=== PATIENT | male | born 1975 | race Caucasian/White ===

== ENCOUNTER 2022-07-14 23:50 | Inpatient (IN) | payer OTHER, SELFPAY ==
--- NOTE | ~2022-07-14 | XR_ITS ---
EXAMINATION: XR small bowel follow through DATE: 07/19/2022 14:42 INDICATION: Abnormal CT scan with terminal ileitis TECHNIQUE: [employer] radiograph(s) of the abdomen was/were obtained. Oral contrast was administered, and sequential radiographs of the abdomen were obtained until oral contrast was noted to be in the proxi mal colon. Spot fluoroscopic images of the small bowel were obtained. Fluoroscopy exposure time was 2 .1 minutes. A total of 200 fluoroscopic images and 3 overhead radiographs were obtained. COMPARISON: CT dated 07/15/2022 FINDINGS: [employer] image demonstrates a cluster of small calcifications corresponding to multiple tiny stones like ly clustered in the calyceal diverticulum with the right kidney. Combined instrumented L4-S1 anterior and posterior spinal fusion with interbody bone graft cages with screw fixations and bilateral verti teodoro michael and pedicle screw fixations. There are additional surgical clips projecting over the midline of the more caudal pelvis. Bowel gas pattern is unremarkable. Transit time from the stomach to proximal colon was approximately 20 minutes. 5 cm proximal to the il eocecal valve is a short segment of at the distal ileum which appears relatively narrowed on many of the images but which does transiently dilated to a similar diameter as the more proximal and distal i leum. There are a few small linear extension of contrast oriented orthogonal to the axis of the lumen of the labrum at this location which are suspicious for small erosions. There appear to be a couple small diverticula along the more proximal ileum in the right lower quadrant. There is otherwise tyler l caliber and mucosal fold pattern throughout the more proximal small bowel. No tethering or abnorma l mass effect observed upon the small bowel with real-time fluoroscopy. IMPRESSION: 1. Very short segment of relatively narrowed terminal ileum with suggestion of small erosions but wit hout a fixed stricture located 5 cm proximal to the ileocecal valve. This corresponds in location to the edematous segment of small bowel on the prior CT which remains concerning for Crohn's disease wit h differential including either infectious terminal ileitis. 2. Couple small diverticula along the more proximal distal ileum. Reviewed, dictated and finalized at location A. IMPRESSION: 1. Very short segment of relatively narrowed terminal ileum with suggestion of small erosions but without a fixed stricture located 5 cm proximal to the ileoc ecal valve. This corresponds in location to the edematous segment of small sharyn l on the prior CT which remains concerning for Crohn's disease with differentia l including either infectious terminal ileitis. 2. Couple small diverticula along the more proximal distal ileum.
--- NOTE | ~2022-07-14 | CT_ITS ---
EXAMINATION: CT abdomen pelvis w con INDICATION: Right lower quadrant pain, prior appendectomy TECHNIQUE: Computed tomographic images of the abdomen and pelvis were obtained after the administrati on of 100 cc of Omnipaque 350 intravenous contrast. The dose-length product (DLP) was 455.42 mGy-cm. Automated exposure control and iterative reconstruction technique were employed. COMPARISON: None available FINDINGS: The lung bases are clear. The heart size is normal. The liver, spleen, pancreas, gallbladde r, and adrenal glands are normal. The left kidney is unremarkable. There is a 1.3 cm nonobstructing s tone of the right kidney. No pathologically enlarged abdominal or pelvic lymph nodes are identified. There are no dilated loops of bowel. There is inflammatory change of the right lower quadrant. There is wall thickening of the terminal ileum. There appears to be an approximately 2.7 cm abscess adjacen t to the terminal ileum. Changes of anterior and posterior fusion procedure are noted from L4 through S1. IMPRESSION: 1. Terminal ileitis with small abscess adjacent to the terminal ileum. Surgical evaluation is recomme nded. Reviewed, dictated and finalized at location A. IMPRESSION: 1. Terminal ileitis with small abscess adjacent to the terminal ileum. Surgical evaluation is recommended.
[2022-07-14 23:54] VITALS: BP 156/103; PULSE 120; RESP 20; TEMP 36.9; O2SAT 100
[2022-07-15 00:13] LABS: Basophils Percent Auto 0.1 % (0.2-1.2); Eosinophils Percent Auto 0.3 % (0-4.4); Hematocrit 43.6 % (42.0-52.0); Hemoglobin 14.8 g/dL (14.0-18.0); Immature Granulocyte Absolute 0.06 K/mm3 (0.00-0.031); Immature Granulocyte Percent A 0.6 % (0-0.5); Lymphocytes Absolute Auto 1.72 K/mm3 (0.9-3.2); Lymphocytes Percent Auto 16.8 % (18.3-44.2); Mean Corpuscular HGB Conc 33.9 g/dl (32-36); Mean Corpuscular Hemoglobin 31.1 pg (26-34); Mean Corpuscular Volume 91.6 fl (80-100); Mean Platelet Volume 9.4 fl (7.4-10.4); Monocytes Absolute Auto 0.8 K/mm3 (0.1-0.6); Monocytes Percent Auto 7.5 % (2.6-8.5); Neutrophils Absolute Auto 7.7 K/mm3 (1.3-6.7); Neutrophils Percent Auto 74.7 % (45.5-73.1); Platelet Count Result 218 k/mm3 (150-375); Red Blood Count 4.76 M/mm3 (4.6-6.20); Red Cell Distribution Width 12.2 % (11.5-14.5); White Blood Count 10.2 K/mm3 (4.5-10.0)
--- NOTE | 2022-07-15 00:21 | ED.ABDPAIN ---
HPI - Abdominal Pain General Chief Complaint: Abdominal Pain <NESSA Irvin Last Filed: 07/15/22 02:48> Stated Complaint: abdominal pain <NESSA Irvin Last Filed: 07/15/22 02:48> Time Seen by Provider: 07/15/22 00:06 <NESSA Irvin Last Filed: 07/15/22 02:48> Source: patient <NESSA Irvin Last Filed: 07/15/22 02:48> Mode of arrival: ambulatory <NESSA Irvin Last Filed: 07/15/22 02:48> Limitations: no limitations <NESSA Irvin Last Filed: 07/15/22 02:48> History of Present Illness HPI narrative: This is a 47-year-old male who presents to the ED with chief complaint of generalized abdominal pain onset x2 days. Described as cramping. Patient states that he has had a couple episodes of vomiting and nausea. Denies hematemesis. Endorses episodes of loose stools today which seem to help the pain. States that he feels if he could pass gas it would resolve his pain. Endorses bloating. States he is concerned for an obstruction as he has not been able to pass gas for the past 12 hours. Endorses Tmax of 101 ?F today. Endorses anxiety. Denies chest pain, shortness of breath, urinary symptoms. Reports surgical history of appendectomy, anterior lumbar spinal fusions. <NESSA Irvin Last Filed: 07/15/22 02:48> Related Data Home Medications: Home Medications Medication Instructions Recorded Confirmed levothyroxine 125 mcg tablet 125 mcg PO DAILY 07/15/22 07/15/22 naltrexone 50 mg tablet 5 mg PO DAILY 07/15/22 07/15/22 rosuvastatin 10 mg tablet 10 mg PO HS 07/15/22 07/15/22 zolpidem 10 mg tablet 10 mg PO HS PRN Sleep 07/15/22 07/15/22 <NESSA Irvin Last Filed: 07/15/22 02:48> Allergies/Adverse Reactions: Allergies Allergy/AdvReac Type Severity Reaction Status Date / Time Cephalosporins Allergy Hives Verified 07/14/22 23:54 <Kenroy Heredia PA-C - Last Filed: 07/15/22 02:48> Review of Systems Review of Systems: CONSTITUTIONAL: See HPI EYES: Denies visual changes, redness, or discharge. ENT: Denies rhinorrhea, congestion, sore throat, or otalgia. CARDIOVASCULAR: Denies chest pain, palpitations, or edema. RESPIRATORY: Denies cough or dyspnea. GASTROINTESTINAL: Denies abdominal pain, nausea, vomiting, or diarrhea. GENITOURINARY: Denies dysuria or hematuria. SKIN: Denies rash or itching. MUSCULOSKELETAL: Denies back pain, joint pain, or myalgia. NEUROLOGIC: Denies headache, numbness, dizziness, or weakness. PSYCHIATRIC: See HPI <Kenroy Heredia PA-C - Last Filed: 07/15/22 02:48> PMFSH Family History Family History: Family History (Updated 07/15/22 @ 03:27 by Monet Green RN) Mother Asthma Father Cerebrovascular accident Sibling Cerebrovascular accident <Kenroy Heredia PA-C - Last Filed: 07/15/22 02:48> Social History Social History: Social History Smoking status: Former smoker Alcohol intake: never Substance use: never Lack of Transportation: No Lack of Food: Never True Current Housing: I Have Housing Concerned About Future Housing: No Difficulty Paying Gas/Electric Bills: No Difficulty Paying for Meds: No Currently Unemployed: No Education: Bachelor's Degree Difficulty w/ Childcare or Family Care: No Spiritual care concerns: No <Kenroy Heredia PA-C - Last Filed: 07/15/22 02:48> Exam Narrative: GENERAL: Well-appearing, well-nourished, and in no acute distress. HEAD: Normocephalic, atraumatic. EYES: PERRLA and EOMI. ENT: Nares clear, no rhinorrhea or epistaxis. Mucous membranes moist. Oropharynx without tonsillar hypertrophy exudate or other lesions. NECK: Supple. No adenopathy or masses. CHEST: No respiratory distress. Clear to auscultation. No wheezes rales or rhonchi HEART: Regular rate and rhythm. No murmur heard. Normal peripheral pulses. ABDOMEN: Mild tenderness to the right lower quadrant and suprapubic abdominal region. W
[2022-07-15] MEDS: FAMOTIDINE 20 MG/2 ML VIAL IV PUSH (00:26)
[2022-07-15] MEDS: HYDROmorphone HCL INJ (*CRX) 1 MG/ML SYR 0.5 MG IV PUSH ×5 (00:26→22:17)
[2022-07-15] MEDS: ONDANSETRON INJ 4 MG/2 ML VIAL IV PUSH ×2 (00:26→02:52)
[2022-07-15] MEDS: SODIUM CHLORIDE 0.9% IV 1,000 ML 999 ML IV CONT ×2 (00:36)
[2022-07-15 00:38] LABS: Alanine Aminotransferase 51 U/L (6-50); Albumin Level 5.1 g/dL (3.5-5.1); Alkaline Phosphatase 70 U/L (38-126); Anion Gap 9 mmol/L (8-16); Aspartate Amino Transferase 57 U/L (17-59); Bilirubin,Total 1.2 mg/dL (0.2-1.3); Blood Urea Nitrogen 10 mg/dL (9-20); Calcium 9.3 mg/dL (8.4-10.2); Carbon Dioxide 30 mmol/L (22-30); Chloride 100 mmol/L (98-107); Estimated CRCL calculation 96 ml/min; Estimated Glomerular Filt Rate > 60; Glucose 105 mg/dL (65-110); Lipase 165 U/L (23-300); Potassium 3.7 mmol/L (3.4-5.0); Sodium 139 mmol/L (137-145)
[2022-07-15 01:15] LABS: Appearance Urine Clear (Clear); Bacteria Urine None Seen /hpf; Bilirubin Urine 1+ (Negative); Blood Urine Negative (Negative); Color Urine Dark Yellow (Yellow); Glucose Urine UA Negative (Negative); Ketones Urine 2+ mg/dL (Negative); Leukocyte Esterase Ur Trace LEU/UL (Negative); Mucus Urine Present /lpf; Nitrate Urine Negative (Negative); Non Pathogenic Casts 0-2; Protein Urine Trace mg/dL (Negative); RBC Urine 0-2 /hpf (0-2); Specific Grav Ur 1.027 (1.001-1.035); Squamous Epithelial Cell Urine None seen /hpf (Few); WBC Urine 0-5 /hpf
[2022-07-15 01:24] LABS: Add Urine Microscopic? YES
[2022-07-15] MEDS: PIPERACILLN/TAZ 3.375GM/NS50ML 3.375 GM/50 ML BAG IVPB (02:32)
[2022-07-15 02:47] VITALS: BP 122/85; PULSE 97; RESP 20; O2SAT 100
[2022-07-15 02:54] VITALS: BP 122/85; PULSE 91; RESP 14; O2SAT 100
[2022-07-15] MEDS: SODIUM CHLORIDE 0.9% IV 1,000 ML 125 ML IV CONT ×2 (03:21→13:48)
[2022-07-15 03:23] VITALS: BP 141/88; PULSE 90; RESP 20; TEMP 36.4; O2SAT 100
--- NOTE | 2022-07-15 03:23 | ADMGEN ---
This patient, Federico Stafford, was admitted to Medical Room 340-01. Patient/family oriented to hospital policies and general routines including ID bracelet, bed and alarms, visiting hours, pain management, procedures, bathroom and other care routines, personal items, smoking policy, room service/diet, and visiting hours. Information on how to activate the Rapid Response Team has been discussed. Patient/Family are encouraged to report perceived risks to care and to ask questions if they do not understand what they are told or what they should do.
[2022-07-15 05:51] VITALS: BP 117/72; PULSE 96; RESP 16; O2SAT 100
--- NOTE | 2022-07-15 06:09 | PM.IMHP ---
H&P: HPI History of Present Illness Date/Time: 07/15/22 04:09 Chief Complaint: Abdominal pain Narrative: 39-year-old male with past medical history of irritable bowel disease, hypothyroidism and long COVID who presented to the ER from family member christopher due to abdominal pain. The patient reports that he is here from [place] visiting his mother. He reports that on the evening of the he had some developing abdominal tightness. Within a couple of hours the tightness turn into a cramping right lower quadrant abdominal pain that was more severe to palpation. It was associated with decreased appetite. The pain was 7/10 in intensity. He denies any nausea or vomiting. He reports that he has not been able to have a bowel movement since onset of the pain. He reports that he usually tends to have more loose stools. But he will occasionally have variable bowel movements and have episodes of constipation. He has been having these issues since before 2008 at which time he had a colonoscopy which he reports was normal. He checked his temperature with an infrared thermometer and got a temperature as high as 101? on the . He reports that he had a his abdomen feels as if it is going to explode. He has had a prior open appendectomy in 1999 and a anterior lumbar fusion. He reports that his pain is similar to when he has had prior episodes of discomfort with his usual bowel symptoms. They use reports that his usual bowel symptoms resolve after about 30 minutes. This time his symptoms have not resolved and he still cannot have a bowel movement. He reports unintentional weight loss of 20-25 lb since May or June. He reports no changes in his appetite until the last couple of days. He has not been having any mucousy or bloody stools. He denies any nausea or vomiting. The patient reports that he feels like his abdomen is bubbling and that he just really needs to pass gas but is unable to do so. He did try to eat 2 tbsp of mustard which briefly helped his symptoms before his pain rebounded. He reports symptoms of long COVID including neuropathic pain down his arms, overwhelming fatigue, and disequilibrium. He reports that his symptoms have improved since he was started on naltrexone by his neurologist and underwent sequential compression therapy last month. He has been having as long COVID symptoms for 13 months. He developed long COVID after his 2nd episode of COVID. Review of Systems Review of Systems: 12 systems were reviewed with pertinent positives and negatives per HPI. Except as documented in the HPI, all other systems were reviewed and are negative. [facility] Past Medical History Medical History (Updated 07/15/22 @ 07:02 by Jade Blandon DO) Hypothyroidism Insomnia Long COVID Surgical History Surgical History (Updated 07/15/22 @ 06:24 by Jade Blandon DO) History of appendectomy (~2000) S/P lumbar and lumbosacral fusion by anterior technique (01/2018) L4 through S1 fusion Family History Family History Mother Asthma Father Cerebrovascular accident Sibling Cerebrovascular accident Social History Social History (Updated 07/15/22 @ 06:26 by Jade Blandon DO) Smoking packs per day: 0.5 Smoking cigarettes per day: 10.0 Years smoked: 7 Smoking pack-years: 3.50 Smoking status: Former smoker Alcohol intake: current Alcohol use details: 1 drink per month Substance use: never Lack of Transportation: No Lack of Food: Never True Current Housing: I Have Housing Concerned About Future Housing: No Difficulty Paying Gas/Electric Bills: No Difficulty Paying for Meds: No Currently Unemployed: No Education: Bachelor's Degree Difficulty w/ Childcare or Family Care: No Additional living arrangements comments: He lives with his fiancee of 15 years. [place] They are in the area visiting family. He does not have any
[2022-07-15] MEDS: LEVOTHYROXINE SODIUM INJ 100 MCG/5 ML VIAL 62.5 MCG IV PUSH (06:51)
[2022-07-15] MEDS: metroNIDAZOLE 500 MG/ISO 100ML 500 MG/100 ML BAG 100 MG IVPB ×3 (08:08→18:09)
[2022-07-15] MEDS: levoFLOXacin 750 MG/D5W 150 ML 750 MG/150 ML BAG 100 MG IVPB (08:13)
--- NOTE | 2022-07-15 13:51 | WPDGICN ---
Assessment and Plan Assessment and plan (1) Right lower quadrant abdominal abscess: Code(s): K65.1 - Peritoneal abscess Status: Acute Assessment and Plan: Patient with CT scan imaging suggesting terminal ileitis as well as right lower quadrant abscess. This very suspicious for Crohn's disease. Agree with broad-spectrum antibiotic coverage. If patient becomes distended than NG tube decompression may be warranted. When patient is stabilized colonoscopy in small-bowel follow-through is suggested. If abscess fails to respond surgical therapy may be warranted. Appreciate Dr. Garrett and surgical service input. We will try patient on IV steroids but I have discussed this with the surgeon as this could aggravate infectious etiology and/or wound healing after surgery. (2) Ileitis: Code(s): K52.9 - Noninfective gastroenteritis and colitis, unspecified Status: Acute Assessment and Plan: Ileitis on imaging suggests terminal ileitis and Crohn's disease. This not yet been confirmed. Hopefully as patient improves colonoscopy and small-bowel follow-through can be obtained. Patient ultimately hopes to return to his home state of [place] for continue management after hospital stay. (3) Long COVID: Code(s): U09.9 - Post COVID-19 condition, unspecified Status: Acute GI Consult Note Consult date/time: 07/15/22 13:51 Reason for consult: Right lower quadrant pain, abscess. HPI: Federico Stafford is a 47 year old male I am asked to see because of right lower quadrant pain and abscess on CT scan imaging. Patient lives in [place]. Was visiting his mother locally when on Monday began to have rather significant abdominal bloating and discomfort. He ultimately developed diffuse abdominal pain predominantly in the right lower quadrant. This prompted patient to go to the emergency room. CT scan imaging suggested terminal ileitis and an abscess. Patient states on began to have a low-grade fever which prompted him to go to the emergency room. Patient had loose bowel movements yesterday morning and has had difficulty passing gas until today. His abdomen is less distended today. The patient's recent past medical history is significant that he is suffering from Long COVID. Patient states as a teenager he had erosive esophagitis by endoscopy. Additionally has had lumbar spine 3rd surgery several years ago. He did have a history of appendectomy in the past. Family history is significant his mother had colitis for which she recovered. Presumably an infection. Review of Systems Review of Systems: Review of systems noncontributory. [facility] Past Medical History Medical History (Updated 07/15/22 @ 07:02 by Jade Blandon DO) Hypothyroidism Insomnia Long COVID Surgical History Surgical History (Updated 07/15/22 @ 06:24 by Jade Blandon DO) History of appendectomy (~2000) S/P lumbar and lumbosacral fusion by anterior technique (01/2018) L4 through S1 fusion Family History Family History Mother Asthma Father Cerebrovascular accident Sibling Cerebrovascular accident Social History Social History (Updated 07/15/22 @ 06:26 by Jade Blandon DO) Smoking packs per day: 0.5 Smoking cigarettes per day: 10.0 Years smoked: 7 Smoking pack-years: 3.50 Smoking status: Former smoker Alcohol intake: current Alcohol use details: 1 drink per month Substance use: never Lack of Transportation: No Lack of Food: Never True Current Housing: I Have Housing Concerned About Future Housing: No Difficulty Paying Gas/Electric Bills: No Difficulty Paying for Meds: No Currently Unemployed: No Education: Bachelor's Degree Difficulty w/ Childcare or Family Care: No Additional living arrangements comments: He lives with his fiancee of 15 years. They [place]. They are in the area vis
[2022-07-15 14:00] VITALS: BP 136/80; PULSE 93; RESP 18; TEMP 36.6; O2SAT 100
--- NOTE | 2022-07-15 15:43 | PM.IMPN ---
Progress Note: A&P Assessment and Plan (1) Right lower quadrant abdominal abscess: Code(s): K65.1 - Peritoneal abscess Status: Acute Assessment and Plan: Right lower quadrant abscess with associated was likely ileitis. Source of ileitis is not specified of possible inflammatory bowel disease. General surgery and gastroenterology has been consulted. GI recommending colonoscopy in small-bowel follow-through once patient is stabilized. Surgery not recommending surgical intervention at this time. Patient is NPO except meds. Pain medications with Dilaudid 0.5 mg q.4 hours p.r.n. and p.r.n. Zofran have been ordered. Patient started on Levaquin and Flagyl. (2) Ileitis: Code(s): K52.9 - Noninfective gastroenteritis and colitis, unspecified Status: Acute Assessment and Plan: Imaging suggesting terminal ileitis and Crohn's disease. This will have to be confirmed with colonoscopy, biopsy as well bowel follow-through. (3) Long COVID: Code(s): U09.9 - Post COVID-19 condition, unspecified Status: Acute Assessment and Plan: Will resume the patient's home naltrexone. (4) Hypothyroidism: Qualifiers: Hypothyroidism type: acquired Qualified Code(s): E03.9 - Hypothyroidism, unspecified Code(s): E03.9 - Hypothyroidism, unspecified Status: Acute Assessment and Plan: Will switch p.o. levothyroxine to IV levothyroxine. Subjective Date/time seen: 07/15/22 15:43 Interval history: Patient continued to have abdominal pain. Although it is better than when he arrived. He denies nausea vomiting. He has not had bowel movement but has passed gas. Plan to continue IV antibiotic therapy. Patient will likely need repeat CT scan to assess the progression of his abscess. His main concern is when he can be discharged due to him visiting family and not being from [place]. Patient is originally from [place] and would like to be discharged so he can return home with his soon. Exam Narrative: GENERAL: Comfortable, no acute distress HENMT: moist mucous membranes EYES: EOM intact b/l NECK: no lymphadenopathy RESPIRATORY: clear to auscultation CARDIO: RRR GI: soft, Diffuse abdominal tenderness right lower quadrant worse than the rest of the abdomen, hypoactive bowel sounds SKIN: no rashes EXTREMITIES: no edema, redness or tenderness Objective Data Vital Signs Vital Signs: Vital Signs - 24 hr 07/14/22 23:54 07/15/22 02:47 07/15/22 02:54 Temperature 98.5 F Pulse Rate 120 H 97 91 Respiratory Rate 20 20 14 Blood Pressure 156/103 H 122/85 122/85 Pulse Oximetry 100 100 100 Oxygen Delivery Room Air 07/15/22 03:37 07/15/22 03:23 07/15/22 05:51 Temperature 97.5 F L Pulse Rate 90 96 Respiratory Rate 20 16 Blood Pressure 141/88 H 117/72 Pulse Oximetry 100 100 Oxygen Delivery Room Air 07/15/22 08:00 07/15/22 14:00 Temperature 97.9 F Pulse Rate 93 Respiratory Rate 18 Blood Pressure 136/80 Pulse Oximetry 100 Oxygen Delivery Room Air Intake/Output Intake/Output: Intake & Output 07/12/22 07/13/22 07/14/22 07/15/22 23:59 23:59 23:59 23:59 Intake Total 3150 Output Total 1750 Balance 1400 Meds/Results Medications: Active Medications Generic Name Dose Route Start Last Admin Trade Name Freq PRN Reason Stop Dose Admin Enoxaparin Sodium 40 mg 07/15/22 09:00 07/15/22 13:49 Enoxaparin 40 Mg/0.4 Ml Syringe SUB-Q Not Given DAILY GISSELLE Hydromorphone HCl 0.5 mg 07/15/22 02:31 07/15/22 13:45 Hydromorphone Hcl Inj (*Crx) 1 Mg/Ml Syr IV PUSH 0.5 mg Q4H PRN Administration Pain Rated 7-10 Sodium Chloride 1,000 mls @ 125 mls/hr 07/15/22 02:35 07/15/22 13:48 Normal Saline Iv IV CONT 125 mls/hr .Q8H GISSELLE Administration Levofloxacin/Dextrose 750 mg in 150 mls @ 100 mls/hr 07/15/22 09:00 07/15/22 08:13 Levaquin 750 Mg/D5w 150 Ml IVPB
[2022-07-15] MEDS: methylPREDNISolone SOD SUCC 125 MG VIAL 60 MG IV PUSH ×2 (17:16→21:02)
[2022-07-15] MEDS: ACETAMINOPHEN/ASPIRIN/CAFFEINE 250-250-65 MG TABLET 1 TABLET PO (17:17)
--- NOTE | 2022-07-15 18:06 | PHAR ---
Addendum entered by Babita Wilson [facility] 07/15/22 22:01: CALLED [facility], [address] [place] [address], [place], [place], TO VERIFY COMPOUNDED CAPSULES AND SPOKE WITH PHARMACIST YENNI. RX [id number] BLUE AND WHITE CAPSULES AND RX [id number] ARE RED AND WHITE CAPSULES. PATIENT TAKES 5MG OR 6 MG WHICH HE HAS DISCUSSED WITH HIS DOCTOR DEPENDING ON HIS SYMPTOMS. CURRENTLY TAKING 5MG. Original Note: UNABLE TO IDENTIFY PATIENTS HOME MEDS RX [id number] [facility] FOR LACEYDANIELLASHEREE DATE FILLED 05-03-22 UNABLE TO IDENTIFY MEDS THESE ARE COMPOUNDED CAPSULES BOTTLE LABEL DIRECTIONS ARE 3 CAPSULES EVERY DAY NALTREXONE IR 2MG AND RX [id number] [facility] FOR SHEREE LACEY DATE FILLED 05-31-22 UNABLE TO IDENTIFY MEDS THESE ARE COMPOUNDED CAPSULES BOTTLE LABEL DIRECTIONS ARE 2 CAPSULES EVERY DAY NALTREXONE 3MG
[2022-07-15 19:35] VITALS: BP 128/84; PULSE 96; RESP 20; TEMP 36.6; O2SAT 100
[2022-07-15] MEDS: ZOLPIDEM TARTRATE (*CRX) 5 MG TABLET 10 MG PO (22:19)
[2022-07-16] MEDS: metroNIDAZOLE 500 MG/ISO 100ML 500 MG/100 ML BAG 100 MG IVPB ×4 (01:25→18:46)
[2022-07-16] MEDS: SODIUM CHLORIDE 0.9% IV 1,000 ML 125 ML IV CONT ×3 (01:25→21:03)
[2022-07-16 05:16] VITALS: BP 115/77; PULSE 82; RESP 18; TEMP 36.6; O2SAT 99
[2022-07-16] MEDS: LEVOTHYROXINE SODIUM INJ 100 MCG/5 ML VIAL 62.5 MCG IV PUSH (06:10)
[2022-07-16] MEDS: methylPREDNISolone SOD SUCC 125 MG VIAL 60 MG IV PUSH ×3 (06:10→21:03)
[2022-07-16 06:59] LABS: Basophils Percent Auto 0.1 % (0.2-1.2); Hematocrit 40.7 % (42.0-52.0); Hemoglobin 13.6 g/dL (14.0-18.0); Immature Granulocyte Absolute 0.04 K/mm3 (0.00-0.031); Immature Granulocyte Percent A 0.4 % (0-0.5); Lymphocytes Absolute Auto 0.82 K/mm3 (0.9-3.2); Lymphocytes Percent Auto 8.7 % (18.3-44.2); Mean Corpuscular HGB Conc 33.4 g/dl (32-36); Mean Corpuscular Hemoglobin 30.8 pg (26-34); Mean Corpuscular Volume 92.1 fl (80-100); Mean Platelet Volume 9.8 fl (7.4-10.4); Monocytes Absolute Auto 0.2 K/mm3 (0.1-0.6); Monocytes Percent Auto 1.7 % (2.6-8.5); Neutrophils Absolute Auto 8.4 K/mm3 (1.3-6.7); Neutrophils Percent Auto 89.1 % (45.5-73.1); Platelet Count Result 204 k/mm3 (150-375); Red Blood Count 4.42 M/mm3 (4.6-6.20); Red Cell Distribution Width 12.1 % (11.5-14.5); White Blood Count 9.4 K/mm3 (4.5-10.0)
[2022-07-16 07:42] LABS: Anion Gap 9 mmol/L (8-16); Blood Urea Nitrogen 14 mg/dL (9-20); CRP 17.9 mg/dL (<1.0); Calcium 8.5 mg/dL (8.4-10.2); Carbon Dioxide 27 mmol/L (22-30); Chloride 106 mmol/L (98-107); Estimated CRCL calculation 134 ml/min; Estimated Glomerular Filt Rate > 60; Glucose 147 mg/dL (65-110); Potassium 4.4 mmol/L (3.4-5.0); Sodium 142 mmol/L (137-145)
[2022-07-16] MEDS: levoFLOXacin 750 MG/D5W 150 ML 750 MG/150 ML BAG 100 MG IVPB (08:07)
[2022-07-16] MEDS: ENOXAPARIN 40 MG/0.4 ML SYRINGE SUB-Q (08:13)
--- NOTE | 2022-07-16 09:36 | WPDGIPROGNO ---
Progress Note: A&P Assessment and Plan (1) Right lower quadrant abdominal abscess: Code(s): K65.1 - Peritoneal abscess Status: Acute Assessment and Plan: Patient with terminal ileitis associated right lower quadrant abscess and tenderness. This all appears most consistent with inflammatory bowel disease probably Crohn's disease. Patient now on broad-spectrum antibiotic coverage. IV steroids started yesterday. Patient now passing flatus. Plan to start liquid diet and advance as tolerated. Colonoscopy and subsequent small-bowel follow-through will be anticipated after we are certain inflammation has subsided. At some point follow-up CT scan to document status of the abscess. (If meds fail to cause resolution potential for percutaneous drainage or surgery remains.) (2) Ileitis: Code(s): K52.9 - Noninfective gastroenteritis and colitis, unspecified Status: Acute (3) Long COVID: Code(s): U09.9 - Post COVID-19 condition, unspecified Status: Acute Subjective Date/time seen: 07/16/22 09:36 Interval history: Patient feels much better today. Significant decline and pain in his right lower quadrant. Patient ambulating in room. Hungry and anxious to resume diet. He is passing flatus but no bowel movement since admission hospital. Review of Systems Review of Systems: Review of systems noncontributory. Exam Narrative: Physical exam reveals patient be alert. Afebrile and anicteric. HEENT exam reveals no icterus. Lungs are clear. Heart without murmur. Abdomen bowel sounds present soft mild fullness in the right lower quadrant. Much less tender than yesterday. MDs without clubbing cyanosis or edema. Objective Data Vital Signs Vital Signs: Vital Signs - 24 hr 07/15/22 14:00 07/15/22 19:35 07/16/22 05:16 Temperature 97.9 F 97.9 F 97.9 F Pulse Rate 93 96 82 Respiratory Rate 18 20 18 Blood Pressure 136/80 128/84 115/77 Pulse Oximetry 100 100 99 Intake/Output Intake/Output: Intake & Output 07/13/22 07/14/22 07/15/22 07/16/22 23:59 23:59 23:59 23:59 Intake Total 4500 100 Output Total 3165 850 Balance 1335 -750 Meds/Results Medications: Active Medications Generic Name Dose Route Start Last Admin Trade Name Freq PRN Reason Stop Dose Admin Acetaminophen/Aspirin/Caffeine 1 tablet 07/15/22 16:50 07/15/22 17:17 Acetaminophen/Aspirin/Caffeine 250-250-65 Mg Tablet PO 1 tablet Q6H PRN Administration Pain Rated 1-3 Enoxaparin Sodium 40 mg 07/15/22 09:00 07/16/22 08:13 Enoxaparin 40 Mg/0.4 Ml Syringe SUB-Q 40 mg DAILY GISSELLE Administration Hydromorphone HCl 0.5 mg 07/15/22 02:31 07/15/22 22:17 Hydromorphone Hcl Inj (*Crx) 1 Mg/Ml Syr IV PUSH 0.5 mg Q4H PRN Administration Pain Rated 7-10 Sodium Chloride 1,000 mls @ 125 mls/hr 07/15/22 02:35 07/16/22 01:25 Normal Saline Iv IV CONT 125 mls/hr .Q8H GISSELLE Administration Levofloxacin/Dextrose 750 mg in 150 mls @ 100 mls/hr 07/15/22 09:00 07/16/22 08:07 Levaquin 750 Mg/D5w 150 Ml IVPB 100 mls/hr Q24H GISSELLE Administration Metronidazole 500 mg in 100 mls @ 100 mls/hr 07/15/22 07:00 07/16/22 06:10 Flagyl 500 Mg/Iso Soln 100 Ml IVPB 100 mls/hr Q6H GISSELLE Administration Levothyroxine Sodium 62.5 mcg 07/15/22 06:30 07/16/22 06:10 Levothyroxine Sodium Inj 100 Mcg/5 Ml Vial IV PUSH 62.5 mcg DAILY@0630 GISSELLE Administration Methylprednisolone Sodium Succinate 60 mg 07/15/22 14:00 07/16/22 06:10 Methylprednisolone Sod Succ 125 Mg Vial IV PUSH 60 mg Q8HR GISSELLE Administration Home Med Naltrexone 1 each 07/15/22 09:00 07/16/22 08:15 2mg Tablet PO 08/14/22 08:59 1 each DAILY GISSELLE Administration Home Med Naltrexone 1 each 07/15/22 09:00 07/16/22 08:15 3mg Tablet PO 08/14/22 08:59 1 each DAILY GISSELLE Administration Ondansetron HCl 4 mg 07/15/22 02:31 07/15/22 02:52 Ondansetron Inj 4 Mg/2 Ml Vial IV PU
[2022-07-16 09:39] VITALS: O2SAT 98
--- NOTE | 2022-07-16 11:23 | WPDCN ---
Assessment and Plan Assessment and plan (1) Ileitis: Code(s): K52.9 - Noninfective gastroenteritis and colitis, unspecified Status: Acute Assessment and Plan: Exam and CT findings consistent with terminal ileitis. He has no history of Crohn's disease but when his presentation it certainly is high in the differential. Dr. Cherry from gastroenterology has seen him and has recommended that he get a bowel follow-through series and a colonoscopy. This will likely be done before he leaves the hospital. He continues on IV antibiotics and bowel rest. (2) Right lower quadrant abdominal abscess: Code(s): K65.1 - Peritoneal abscess Status: Acute Assessment and Plan: The abscess is small likely can be treated with IV antibiotics. No need for surgical drainage at this time. He does not have evidence of perforation or high-grade small-bowel obstruction needing any surgical management at this time. We will continue to follow. HPI Data of Consult Date/Time: 07/15/22 11:23 Requesting Physician: Jade Blandon DO Primary Care Provider: PHYSICIAN NOT ON STAFF Consult Narrative Reason for consult: Right lower quadrant abdominal pain Narrative: Federico Stafford is a 47 year old male who was admitted to the hospital with a 2 day history of progressively worsening right lower quadrant abdominal pain. He stated he has had some minor pain in this area for several weeks. He will have some diarrhea but then the pain would go away. He has no family history of inflammatory bowel disease and a personal history of inflammatory bowel disease. He had an elevated white blood cell count on admission and a CT scan abdomen pelvis showed inflammation of the terminal ileum with an approximately 2 to 3 cm abscess in the area. No free air perforation was noted. He had a colonoscopy about 10 years ago normal. He is in town visiting his mother is originally from the [facility]. He had an appendectomy about 20 years ago. Review of Systems Review of Systems: The remainder of the review of systems to include constitutional, HEENT, cardiovascular, respiratory, GI, , integumentary, musculoskeletal, endocrine, immunologic, hematologic, psychiatric, and neurologic are all negative except for which is mentioned above in the HPI. [facility] Past Medical History Medical History Hypothyroidism Insomnia Long COVID Surgical History Surgical History History of appendectomy (~1999) S/P lumbar and lumbosacral fusion by anterior technique (01/2018) L4 through S1 fusion Family History Family History Mother Asthma Father Cerebrovascular accident Sibling Cerebrovascular accident Social History Social History Smoking packs per day: 0.5 Smoking cigarettes per day: 10.0 Years smoked: 7 Smoking pack-years: 3.50 Smoking status: Former smoker Alcohol intake: current Alcohol use details: 1 drink per month Substance use: never Lack of Transportation: No Lack of Food: Never True Current Housing: I Have Housing Concerned About Future Housing: No Difficulty Paying Gas/Electric Bills: No Difficulty Paying for Meds: No Currently Unemployed: No Education: Bachelor's Degree Difficulty w/ Childcare or Family Care: No Additional living arrangements comments: He lives with his fiancee of 15 years. They [place]. They are in the area visiting family. He does not have any children. 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 Spiritual care concerns: No Meds Home Medications and Allergies Home Medications Medication Instructions Rec
--- NOTE | 2022-07-16 11:29 | PM.PNGS ---
Progress Note: A&P Assessment and Plan (1) Ileitis: Code(s): K52.9 - Noninfective gastroenteritis and colitis, unspecified Status: Acute Assessment and Plan: Gastroenterology evaluation is ongoing. Is expected the patient will have a small bowel series performed as well as colonoscopy during this hospitalization. Dr. Cherry is managing. (2) Right lower quadrant abdominal abscess: Code(s): K65.1 - Peritoneal abscess Status: Acute Assessment and Plan: White blood cell count is normalized. His pain is much better. Continue IV antibiotics. Small abscess should resolve with nonoperative management. No evidence of grade small bowel obstruction or perforation. Continue IV antibiotics. Okay to advance to liquids today as per Dr. Cherry. Will follow. Subjective Subjective Date/Time Seen: 07/16/22 11:29 Interval history: Patient is doing much better today. Has much less right lower quadrant pain. Is passing flatus today. No nausea today. He has been afebrile. Exam Const: General: comfortable and no acute distress Resp: Effort & Inspection: normal respiratory effort Auscultation: clear to auscultation bilaterally Cardio: Rate: regular rate Rhythm: regular rhythm GI: Other: Abdomen is much softer and nondistended. Only mild tenderness to palpation right lower quadrant today. No guarding is noted. No peritoneal signs are noted. Neuro: Speech: normal speech Sensory Exam: normal sensation Psych: Mental Status: mental status grossly normal Affect: normal affect Objective Data Vital Signs Vital Signs: Vital Signs - 24 hr 07/15/22 14:00 07/15/22 19:35 07/16/22 05:16 Temperature 36.6 C 36.6 C 36.6 C Pulse Rate 93 96 82 Respiratory Rate 18 20 18 Blood Pressure 136/80 128/84 115/77 Pulse Oximetry 100 100 99 Oxygen Delivery 07/16/22 09:39 07/16/22 08:00 Temperature Pulse Rate Respiratory Rate Blood Pressure Pulse Oximetry 98 Oxygen Delivery Room Air Room Air Intake/Output Intake/Output: Intake & Output 07/13/22 07/14/22 07/15/22 07/16/22 23:59 23:59 23:59 23:59 Intake Total 4500 1740 Output Total 3165 1000 Balance 1335 740 Meds/Results Medications: Active Medications Generic Name Dose Route Start Last Admin Trade Name Freq PRN Reason Stop Dose Admin Acetaminophen/Aspirin/Caffeine 1 tablet 07/15/22 16:50 07/15/22 17:17 Acetaminophen/Aspirin/Caffeine 250-250-65 Mg Tablet PO 1 tablet Q6H PRN Administration Pain Rated 1-3 Enoxaparin Sodium 40 mg 07/15/22 09:00 07/16/22 08:13 Enoxaparin 40 Mg/0.4 Ml Syringe SUB-Q 40 mg DAILY GISSELLE Administration Hydromorphone HCl 0.5 mg 07/15/22 02:31 07/15/22 22:17 Hydromorphone Hcl Inj (*Crx) 1 Mg/Ml Syr IV PUSH 0.5 mg Q4H PRN Administration Pain Rated 7-10 Sodium Chloride 1,000 mls @ 125 mls/hr 07/15/22 02:35 07/16/22 11:02 Normal Saline Iv IV CONT 125 mls/hr .Q8H GISSELLE Administration Levofloxacin/Dextrose 750 mg in 150 mls @ 100 mls/hr 07/15/22 09:00 07/16/22 08:07 Levaquin 750 Mg/D5w 150 Ml IVPB 100 mls/hr Q24H GISSELLE Administration Metronidazole 500 mg in 100 mls @ 100 mls/hr 07/15/22 07:00 07/16/22 06:10 Flagyl 500 Mg/Iso Soln 100 Ml IVPB 100 mls/hr Q6H GISSELLE Administration Levothyroxine Sodium 62.5 mcg 07/15/22 06:30 07/16/22 06:10 Levothyroxine Sodium Inj 100 Mcg/5 Ml Vial IV PUSH 62.5 mcg DAILY@0630 GISSELLE Administration Methylprednisolone Sodium Succinate 60 mg 07/15/22 14:00 07/16/22 06:10 Methylprednisolone Sod Succ 125 Mg Vial IV PUSH 60 mg Q8HR GISSELLE Administration Home Med Naltrexone 1 each 07/15/22 09:00 07/16/22 08:15 2mg Tablet PO 08/14/22 08:59 1 each DAILY GISSELLE Administration Home Med Naltrexone 1 each 07/15/22 09:00 07/16/22 08:15 3mg Tablet PO 08/14/22 08:59 1 each DAILY GISSELLE Administration Ondansetron HCl 4 mg 07/15/22 02:31 07/15/22 02:52 Ondansetron
--- NOTE | 2022-07-16 11:48 | PM.IMPN ---
Progress Note: A&P Assessment and Plan (1) Right lower quadrant abdominal abscess: Code(s): K65.1 - Peritoneal abscess Status: Acute Assessment and Plan: Right lower quadrant abscess with associated was likely ileitis. Source of ileitis is not specified of possible inflammatory bowel disease. General surgery and gastroenterology has been consulted. GI recommending colonoscopy in small-bowel follow-through once patient is stabilized. Surgery not recommending surgical intervention at this time. Advance diet as tolerated starting with clear liquids Analgesics as needed Patient started on Levaquin and Flagyl. (2) Ileitis: Code(s): K52.9 - Noninfective gastroenteritis and colitis, unspecified Status: Acute Assessment and Plan: Imaging suggesting terminal ileitis and Crohn's disease. This will have to be confirmed with colonoscopy, biopsy as well bowel follow-through. (3) Long COVID: Code(s): U09.9 - Post COVID-19 condition, unspecified Status: Acute Assessment and Plan: Will resume the patient's home naltrexone. (4) Hypothyroidism: Qualifiers: Hypothyroidism type: acquired Qualified Code(s): E03.9 - Hypothyroidism, unspecified Code(s): E03.9 - Hypothyroidism, unspecified Status: Acute Assessment and Plan: Can resume p.o. levothyroxine Subjective Date/time seen: 07/16/22 11:48 Interval history: Patient's pain is much improved today compared to yesterday. He still has some residual right lower quadrant tenderness but is managing well. he has not had any bowel movements but is passing flatus. patient denies nausea, vomiting, headache, body aches and chills. Exam Narrative: GENERAL: Comfortable, no acute distress HENMT: moist mucous membranes EYES: EOM intact b/l NECK: no lymphadenopathy RESPIRATORY: clear to auscultation CARDIO: RRR GI: soft, right lower quadrant tenderness to palpation, Bowel sounds x4 SKIN: no rashes EXTREMITIES: no edema, redness or tenderness Objective Data Vital Signs Vital Signs: Vital Signs - 24 hr 07/15/22 14:00 07/15/22 19:35 07/16/22 05:16 Temperature 97.9 F 97.9 F 97.9 F Pulse Rate 93 96 82 Respiratory Rate 18 20 18 Blood Pressure 136/80 128/84 115/77 Pulse Oximetry 100 100 99 Oxygen Delivery 07/16/22 09:39 07/16/22 08:00 Temperature Pulse Rate Respiratory Rate Blood Pressure Pulse Oximetry 98 Oxygen Delivery Room Air Room Air Intake/Output Intake/Output: Intake & Output 07/13/22 07/14/22 07/15/22 07/16/22 23:59 23:59 23:59 23:59 Intake Total 4500 1740 Output Total 3165 1000 Balance 1335 740 Meds/Results Medications: Active Medications Generic Name Dose Route Start Last Admin Trade Name Freq PRN Reason Stop Dose Admin Acetaminophen/Aspirin/Caffeine 1 tablet 07/15/22 16:50 07/15/22 17:17 Acetaminophen/Aspirin/Caffeine 250-250-65 Mg Tablet PO 1 tablet Q6H PRN Administration Pain Rated 1-3 Enoxaparin Sodium 40 mg 07/15/22 09:00 07/16/22 08:13 Enoxaparin 40 Mg/0.4 Ml Syringe SUB-Q 40 mg DAILY GISSELLE Administration Hydromorphone HCl 0.5 mg 07/15/22 02:31 07/15/22 22:17 Hydromorphone Hcl Inj (*Crx) 1 Mg/Ml Syr IV PUSH 0.5 mg Q4H PRN Administration Pain Rated 7-10 Sodium Chloride 1,000 mls @ 125 mls/hr 07/15/22 02:35 07/16/22 11:02 Normal Saline Iv IV CONT 125 mls/hr .Q8H GISSELLE Administration Levofloxacin/Dextrose 750 mg in 150 mls @ 100 mls/hr 07/15/22 09:00 07/16/22 08:07 Levaquin 750 Mg/D5w 150 Ml IVPB 100 mls/hr Q24H GISSELLE Administration Metronidazole 500 mg in 100 mls @ 100 mls/hr 07/15/22 07:00 07/16/22 06:10 Flagyl 500 Mg/Iso Soln 100 Ml IVPB 100 mls/hr Q6H GISSELLE Administration Levothyroxine Sodium 62.5 mcg 07/15/22 06:30 07/16/22 06:10 Levothyroxine Sodium Inj 100 Mcg/5 Ml Vial IV PUSH 62.5 mcg DAILY@0630 [facility] Ad
[2022-07-16 14:00] VITALS: BP 128/82; PULSE 84; RESP 16; TEMP 35.9; O2SAT 99
[2022-07-16 20:06] VITALS: BP 132/89; PULSE 96; RESP 20; TEMP 36.5; O2SAT 99
[2022-07-16] MEDS: ZOLPIDEM TARTRATE (*CRX) 5 MG TABLET 10 MG PO (21:03)
[2022-07-17] MEDS: metroNIDAZOLE 500 MG/ISO 100ML 500 MG/100 ML BAG 100 MG IVPB ×5 (00:22→23:05)
[2022-07-17 04:07] VITALS: BP 121/72; PULSE 89; RESP 16; TEMP 36.6; O2SAT 98
[2022-07-17] MEDS: LEVOTHYROXINE SODIUM 125 MCG TABLET PO (06:03)
[2022-07-17] MEDS: methylPREDNISolone SOD SUCC 125 MG VIAL 60 MG IV PUSH ×3 (06:03→20:46)
[2022-07-17 06:36] LABS: Alanine Aminotransferase 29 U/L (6-50); Albumin Level 3.9 g/dL (3.5-5.1); Alkaline Phosphatase 47 U/L (38-126); Anion Gap 7 mmol/L (8-16); Aspartate Amino Transferase 25 U/L (17-59); Bilirubin,Total 0.6 mg/dL (0.2-1.3); Blood Urea Nitrogen 14 mg/dL (9-20); Calcium 8.3 mg/dL (8.4-10.2); Carbon Dioxide 26 mmol/L (22-30); Chloride 108 mmol/L (98-107); Estimated CRCL calculation 134 ml/min; Estimated Glomerular Filt Rate > 60; Glucose 156 mg/dL (65-110); Potassium 4.1 mmol/L (3.4-5.0); Sodium 141 mmol/L (137-145)
[2022-07-17 06:48] LABS: Basophils Percent Auto 0.1 % (0.2-1.2); Hematocrit 37.2 % (42.0-52.0); Hemoglobin 12.3 g/dL (14.0-18.0); Immature Granulocyte Absolute 0.14 K/mm3 (0.00-0.031); Immature Granulocyte Percent A 0.9 % (0-0.5); Lymphocytes Absolute Auto 0.82 K/mm3 (0.9-3.2); Lymphocytes Percent Auto 5.3 % (18.3-44.2); Mean Corpuscular HGB Conc 33.1 g/dl (32-36); Mean Corpuscular Hemoglobin 30.3 pg (26-34); Mean Corpuscular Volume 91.6 fl (80-100); Mean Platelet Volume 10.1 fl (7.4-10.4); Monocytes Absolute Auto 0.5 K/mm3 (0.1-0.6); Monocytes Percent Auto 3.3 % (2.6-8.5); Neutrophils Percent Auto 90.4 % (45.5-73.1); Platelet Count Result 229 k/mm3 (150-375); Red Blood Count 4.06 M/mm3 (4.6-6.20); Red Cell Distribution Width 12.2 % (11.5-14.5); White Blood Count 15.5 K/mm3 (4.5-10.0)
--- NOTE | 2022-07-17 08:34 | WPDGIPROGNO ---
Progress Note: A&P Assessment and Plan (1) Right lower quadrant abdominal abscess: Code(s): K65.1 - Peritoneal abscess Status: Acute Assessment and Plan: Patient noted to have right lower quadrant abscess associated with terminal ileitis on imaging studies. This is most consistent with Crohn's disease. Plan to continue IV steroids. Broad-spectrum antibiotic coverage as well. Advance diet slowly. Currently on full liquid diet he may benefit from advancing somewhat. He may increase activity with ambulation. Colonoscopy anticipated prior to discharge from the hospital. Still too early for patient to take a prep. Hopefully this can be accomplished over the next several days. Small-bowel follow-through should be performed after the colonoscopy. Will continue to follow closely at present. (2) Ileitis: Code(s): K52.9 - Noninfective gastroenteritis and colitis, unspecified Status: Acute Assessment and Plan: Terminal ileitis evident on CT scan imaging is suggestive of Crohn's disease. Evaluation remains in progress. Continue empiric therapy for now. Leukocytosis is likely secondary to steroid therapy. Subjective Date/time seen: 07/17/22 08:34 Interval history: Patient alert comfortable this morning. Tolerating liquid diet. Continues to pass flatus and small amount of stool noted. Review of Systems Review of Systems: Review of systems noncontributory. Exam Narrative: Physical exam reveals patient be alert. He is afebrile and anicteric. HEENT exam unremarkable. Lungs are clear. Heart without murmur. Abdomen bowel sounds present soft. Very mild tenderness in the right lower quadrant. Abdomen much softer. No fullness or mass appreciated at this time. Extremities without clubbing cyanosis or edema. Objective Data Vital Signs Vital Signs: Vital Signs - 24 hr 07/16/22 09:39 07/16/22 14:00 07/16/22 20:06 Temperature 96.6 F L 97.7 F Pulse Rate 84 96 Respiratory Rate 16 20 Blood Pressure 128/82 132/89 Pulse Oximetry 98 99 99 Oxygen Delivery Room Air 07/17/22 04:07 Temperature 97.8 F Pulse Rate 89 Respiratory Rate 16 Blood Pressure 121/72 Pulse Oximetry 98 Oxygen Delivery Intake/Output Intake/Output: Intake & Output 07/14/22 07/15/22 07/16/22 07/17/22 23:59 23:59 23:59 23:59 Intake Total 4500 4840 450 Output Total 3165 3000 Balance 1335 1840 450 Meds/Results Medications: Active Medications Generic Name Dose Route Start Last Admin Trade Name Freq PRN Reason Stop Dose Admin Acetaminophen/Aspirin/Caffeine 1 tablet 07/15/22 16:50 07/15/22 17:17 Acetaminophen/Aspirin/Caffeine 250-250-65 Mg Tablet PO 1 tablet Q6H PRN Administration Pain Rated 1-3 Enoxaparin Sodium 40 mg 07/15/22 09:00 07/16/22 08:13 Enoxaparin 40 Mg/0.4 Ml Syringe SUB-Q 40 mg DAILY GISSELLE Administration Hydromorphone HCl 0.5 mg 07/15/22 02:31 07/15/22 22:17 Hydromorphone Hcl Inj (*Crx) 1 Mg/Ml Syr IV PUSH 0.5 mg Q4H PRN Administration Pain Rated 7-10 Sodium Chloride 1,000 mls @ 125 mls/hr 07/15/22 02:35 07/16/22 21:03 Normal Saline Iv IV CONT 125 mls/hr .Q8H GISSELLE Administration Levofloxacin/Dextrose 750 mg in 150 mls @ 100 mls/hr 07/15/22 09:00 07/16/22 08:07 Levaquin 750 Mg/D5w 150 Ml IVPB 100 mls/hr Q24H GISSELLE Administration Metronidazole 500 mg in 100 mls @ 100 mls/hr 07/15/22 07:00 07/17/22 06:05 Flagyl 500 Mg/Iso Soln 100 Ml IVPB 100 mls/hr Q6H GISSELLE Administration Levothyroxine Sodium 125 mcg 07/17/22 06:30 07/17/22 06:03 Levothyroxine Sodium 125 Mcg Tablet PO 125 mcg DAILY@0630 GISSELLE Administration Methylprednisolone Sodium Succinate 60 mg 07/15/22 14:00 07/17/22 06:03 Methylprednisolone Sod Succ 125 Mg Vial IV PUSH 60 mg Q8HR GISSELLE Administration Home Med Naltrexone 1 each 07/15/22 09:00 07/16/22 08:15 2mg Tablet PO 08/14/22 08:59 1 each DAILY GISSELLE
[2022-07-17] MEDS: SODIUM CHLORIDE 0.9% IV 1,000 ML 125 ML IV CONT (08:44)
[2022-07-17 08:45] VITALS: O2SAT 96
[2022-07-17] MEDS: levoFLOXacin 750 MG/D5W 150 ML 750 MG/150 ML BAG 100 MG IVPB (08:45)
[2022-07-17] MEDS: ENOXAPARIN 40 MG/0.4 ML SYRINGE SUB-Q (08:45)
--- NOTE | 2022-07-17 11:54 | PM.PNGS ---
Progress Note: A&P Assessment and Plan (1) Ileitis: Code(s): K52.9 - Noninfective gastroenteritis and colitis, unspecified Status: Acute Assessment and Plan: Right lower quadrant abdominal pain likely due to inflammatory process. Could be Crohn's disease. Continue IV antibiotics which should treat the small abscess. He does not have a high-grade small-bowel obstruction at this time. Dr. Cherry plans on a slow bowel prep and probably a colonoscopy and small-bowel series next couple days. Surgery will be available as needed. Subjective Subjective Date/Time Seen: 07/17/22 11:54 Interval history: Patient feels little better today. Right lower quadrant pain is decreasing. He was able to have a small bowel movement. He has passed flatus. No nausea vomiting and he has been afebrile. Dr. Cherry plans on performing colonoscopy before he leaves. Exam GI: Other: Abdomen is soft and minimally distended. Mild tenderness to palpation right lower quadrant without rebound. No masses are appreciated. Objective Data Vital Signs Vital Signs: Vital Signs - 24 hr 07/16/22 14:00 07/16/22 20:06 07/17/22 04:07 Temperature 35.9 C L 36.5 C 36.6 C Pulse Rate 84 96 89 Respiratory Rate 16 20 16 Blood Pressure 128/82 132/89 121/72 Pulse Oximetry 99 99 98 Intake/Output Intake/Output: Intake & Output 07/14/22 07/15/22 07/16/22 07/17/22 23:59 23:59 23:59 23:59 Intake Total 4500 4990 2260 Output Total 3165 3000 Balance 1335 1990 2260 Meds/Results Medications: Active Medications Generic Name Dose Route Start Last Admin Trade Name Freq PRN Reason Stop Dose Admin Acetaminophen/Aspirin/Caffeine 1 tablet 07/15/22 16:50 07/15/22 17:17 Acetaminophen/Aspirin/Caffeine 250-250-65 Mg Tablet PO 1 tablet Q6H PRN Administration Pain Rated 1-3 Enoxaparin Sodium 40 mg 07/15/22 09:00 07/17/22 08:45 Enoxaparin 40 Mg/0.4 Ml Syringe SUB-Q 40 mg DAILY GISSELLE Administration Hydromorphone HCl 0.5 mg 07/15/22 02:31 07/15/22 22:17 Hydromorphone Hcl Inj (*Crx) 1 Mg/Ml Syr IV PUSH 0.5 mg Q4H PRN Administration Pain Rated 7-10 Sodium Chloride 1,000 mls @ 125 mls/hr 07/15/22 02:35 07/17/22 08:44 Normal Saline Iv IV CONT 125 mls/hr .Q8H GISSELLE Administration Levofloxacin/Dextrose 750 mg in 150 mls @ 100 mls/hr 07/15/22 09:00 07/17/22 08:45 Levaquin 750 Mg/D5w 150 Ml IVPB 100 mls/hr Q24H GISSELLE Administration Metronidazole 500 mg in 100 mls @ 100 mls/hr 07/15/22 07:00 07/17/22 06:05 Flagyl 500 Mg/Iso Soln 100 Ml IVPB 100 mls/hr Q6H GISSELLE Administration Levothyroxine Sodium 125 mcg 07/17/22 06:30 07/17/22 06:03 Levothyroxine Sodium 125 Mcg Tablet PO 125 mcg DAILY@0630 GISSELLE Administration Methylprednisolone Sodium Succinate 60 mg 07/15/22 14:00 07/17/22 06:03 Methylprednisolone Sod Succ 125 Mg Vial IV PUSH 60 mg Q8HR GISSELLE Administration Home Med Naltrexone 1 each 07/15/22 09:00 07/17/22 08:46 2mg Tablet PO 08/14/22 08:59 1 each DAILY GISSELLE Administration Home Med Naltrexone 1 each 07/15/22 09:00 07/17/22 08:46 3mg Tablet PO 08/14/22 08:59 1 each DAILY GISSELLE Administration Ondansetron HCl 4 mg 07/15/22 02:31 07/15/22 02:52 Ondansetron Inj 4 Mg/2 Ml Vial IV PUSH 4 mg Q4H PRN Administration Nausea Zolpidem Tartrate 10 mg 07/15/22 06:23 07/16/22 21:03 Zolpidem Tartrate (*Crx) 5 Mg Tablet PO 10 mg HS PRN Administration Sleep Radiology Results: ITS Impressions Abdomen/Pelvis CT 07/15/22 07:00 IMPRESSION: 1. Terminal ileitis with small abscess adjacent to the terminal ileum. Surgical evaluation is recommended. Labs Labs: Laboratory Results - last 24 hr 07/17/22 05:47 WBC 15.5 H RBC 4.06 L Hgb 12.3 L Hct 37.2 L MCV 91.6 MCH 30.3 MCHC 33.1 RDW 12.2 Plt Count 229 MPV 10.1 Immature Gran % (Auto) 0.9 H Neut % (Auto) 90.4 H Lymph % (Auto) 5.
--- NOTE | 2022-07-17 13:36 | PM.IMPN ---
Progress Note: A&P Assessment and Plan (1) Right lower quadrant abdominal abscess: Code(s): K65.1 - Peritoneal abscess Status: Acute Assessment and Plan: Right lower quadrant abscess with associated was likely ileitis. Source of ileitis is not specified of possible inflammatory bowel disease. General surgery and gastroenterology has been consulted. GI recommending colonoscopy in small-bowel follow-through once patient is stabilized. Tentative plan to have colonoscopy on 07/19/2022 and small-bowel follow-through after. Surgery not recommending surgical intervention at this time. Advance diet as tolerated starting with clear liquids Analgesics as needed Patient on Levaquin and Flagyl. (2) Ileitis: Code(s): K52.9 - Noninfective gastroenteritis and colitis, unspecified Status: Acute Assessment and Plan: Imaging suggesting terminal ileitis and Crohn's disease. This will have to be confirmed with colonoscopy, biopsy as well bowel follow-through. GI initiating IV steroids (3) Long COVID: Code(s): U09.9 - Post COVID-19 condition, unspecified Status: Acute Assessment and Plan: Will resume the patient's home naltrexone. (4) Hypothyroidism: Qualifiers: Hypothyroidism type: acquired Qualified Code(s): E03.9 - Hypothyroidism, unspecified Code(s): E03.9 - Hypothyroidism, unspecified Status: Acute Assessment and Plan: Can resume p.o. levothyroxine Subjective Date/time seen: 07/17/22 13:36 Interval history: patient feeling better today. Tolerating diet well. Has no new complaints at this time. Review of Systems Review of Systems: All systems reviewed & are unremarkable except as noted in HPI and below Exam Narrative: GENERAL: Comfortable, no acute distress HENMT: moist mucous membranes EYES: EOM intact b/l NECK: no lymphadenopathy RESPIRATORY: clear to auscultation CARDIO: RRR GI: soft, right lower quadrant tenderness to palpation, Bowel sounds x4 SKIN: no rashes EXTREMITIES: no edema, redness or tenderness Objective Data Vital Signs Vital Signs: Vital Signs - 24 hr 07/16/22 14:00 07/16/22 20:06 07/17/22 04:07 Temperature 96.6 F L 97.7 F 97.8 F Pulse Rate 84 96 89 Respiratory Rate 16 20 16 Blood Pressure 128/82 132/89 121/72 Pulse Oximetry 99 99 98 Oxygen Delivery 07/17/22 08:45 Temperature Pulse Rate Respiratory Rate Blood Pressure Pulse Oximetry 96 Oxygen Delivery Room Air Intake/Output Intake/Output: Intake & Output 07/14/22 07/15/22 07/16/22 07/17/22 23:59 23:59 23:59 23:59 Intake Total 4500 4990 2800 Output Total 3165 3000 Balance 1335 1990 2800 Meds/Results Medications: Active Medications Generic Name Dose Route Start Last Admin Trade Name Freq PRN Reason Stop Dose Admin Acetaminophen/Aspirin/Caffeine 1 tablet 07/15/22 16:50 07/15/22 17:17 Acetaminophen/Aspirin/Caffeine 250-250-65 Mg Tablet PO 1 tablet Q6H PRN Administration Pain Rated 1-3 Enoxaparin Sodium 40 mg 07/15/22 09:00 07/17/22 08:45 Enoxaparin 40 Mg/0.4 Ml Syringe SUB-Q 40 mg DAILY GISSELLE Administration Hydromorphone HCl 0.5 mg 07/15/22 02:31 07/15/22 22:17 Hydromorphone Hcl Inj (*Crx) 1 Mg/Ml Syr IV PUSH 0.5 mg Q4H PRN Administration Pain Rated 7-10 Sodium Chloride 1,000 mls @ 125 mls/hr 07/15/22 02:35 07/17/22 08:44 Normal Saline Iv IV CONT 125 mls/hr .Q8H GISSELLE Administration Levofloxacin/Dextrose 750 mg in 150 mls @ 100 mls/hr 07/15/22 09:00 07/17/22 08:45 Levaquin 750 Mg/D5w 150 Ml IVPB 100 mls/hr Q24H GISSELLE Administration Metronidazole 500 mg in 100 mls @ 100 mls/hr 07/15/22 07:00 07/17/22 06:05 Flagyl 500 Mg/Iso Soln 100 Ml IVPB 100 mls/hr Q6H GISSELLE Administration Levothyroxine Sodium 125 mcg 07/17/22 06:30 07/17/22 06:03 Levothyroxine Sodium 125 Mcg Tablet PO 125 mcg DAILY@0630
[2022-07-17 13:59] VITALS: BP 130/80; PULSE 78; RESP 17; TEMP 36.5; O2SAT 98
[2022-07-17 19:30] VITALS: BP 129/86; PULSE 87; RESP 20; TEMP 36.9; O2SAT 99
[2022-07-17] MEDS: ROSUVASTATIN 10 MG TABLET PO (20:46)
[2022-07-17] MEDS: ZOLPIDEM TARTRATE (*CRX) 5 MG TABLET 10 MG PO (23:05)
[2022-07-18 03:49] VITALS: BP 140/86; PULSE 84; RESP 18; TEMP 36.7; O2SAT 100
[2022-07-18 05:51] LABS: Hematocrit 35.3 % (42.0-52.0); Hemoglobin 11.6 g/dL (14.0-18.0); Immature Granulocyte Absolute 0.07 K/mm3 (0.00-0.031); Immature Granulocyte Percent A 0.7 % (0-0.5); Lymphocytes Absolute Auto 0.83 K/mm3 (0.9-3.2); Lymphocytes Percent Auto 7.9 % (18.3-44.2); Mean Corpuscular HGB Conc 32.9 g/dl (32-36); Mean Corpuscular Hemoglobin 30.2 pg (26-34); Mean Corpuscular Volume 91.9 fl (80-100); Mean Platelet Volume 10.1 fl (7.4-10.4); Monocytes Absolute Auto 0.3 K/mm3 (0.1-0.6); Monocytes Percent Auto 2.8 % (2.6-8.5); Neutrophils Absolute Auto 9.3 K/mm3 (1.3-6.7); Neutrophils Percent Auto 88.6 % (45.5-73.1); Platelet Count Result 251 k/mm3 (150-375); Red Blood Count 3.84 M/mm3 (4.6-6.20); Red Cell Distribution Width 12.3 % (11.5-14.5); White Blood Count 10.5 K/mm3 (4.5-10.0)
[2022-07-18] MEDS: methylPREDNISolone SOD SUCC 125 MG VIAL 60 MG IV PUSH (06:02)
[2022-07-18] MEDS: LEVOTHYROXINE SODIUM 125 MCG TABLET PO (06:03)
[2022-07-18] MEDS: metroNIDAZOLE 500 MG/ISO 100ML 500 MG/100 ML BAG 100 MG IVPB (06:03)
[2022-07-18 06:25] LABS: Alanine Aminotransferase 25 U/L (6-50); Albumin Level 3.4 g/dL (3.5-5.1); Alkaline Phosphatase 42 U/L (38-126); Anion Gap 4 mmol/L (8-16); Aspartate Amino Transferase 22 U/L (17-59); Bilirubin,Total 0.4 mg/dL (0.2-1.3); Blood Urea Nitrogen 14 mg/dL (9-20); CRP 4.2 mg/dL (<1.0); Calcium 8.1 mg/dL (8.4-10.2); Carbon Dioxide 30 mmol/L (22-30); Chloride 106 mmol/L (98-107); Estimated CRCL calculation 134 ml/min; Estimated Glomerular Filt Rate > 60; Glucose 150 mg/dL (65-110); Potassium 3.9 mmol/L (3.4-5.0); Sodium 140 mmol/L (137-145)
--- NOTE | 2022-07-18 07:12 | WPDGIPROGNO ---
Progress Note: A&P Assessment and Plan (1) Right lower quadrant abdominal abscess: Code(s): K65.1 - Peritoneal abscess Status: Acute Assessment and Plan: Patient's right lower quadrant abdominal pain has subsided. Patient has begun to have good bowel movements. Plan for colonoscopy to assess for possible Crohn's disease tomorrow after preparation today. Dose of steroids will be decreased. Change to oral medications tomorrow as diet as tolerated. (2) Ileitis: Code(s): K52.9 - Noninfective gastroenteritis and colitis, unspecified Status: Acute Assessment and Plan: Terminal ileitis suggested on imaging studies raises concern over Crohn's disease which appears to be most likely diagnosis. This will be evaluated initially with attempts at colonoscopy tomorrow ,. small-bowel follow-through can be performed sometime after colonoscopy is performed. Subjective Date/time seen: 07/18/22 07:12 Interval history: Patient alert this morning. Comfortable at rest. Has begun to pass bowel movements. He states that his diarrheal type stool. He denies any difficulty with oral intake. He states right lower quadrant pain has subsided with minimal discomfort remaining. Review of Systems Review of Systems: Review of systems noncontributory. Exam Narrative: Physical exam reveals patient to be alert. Vital signs stable. HEENT exam is unremarkable. Patient is anicteric. Lungs are clear to auscultation and percussion. Heart is without murmur or extra sounds. Abdomen bowel sounds are present soft nontender with no organomegaly. Fullness in right lower quadrant is improved dramatically. Objective Data Vital Signs Vital Signs: Vital Signs - 24 hr 07/17/22 08:45 07/17/22 13:59 07/17/22 19:30 Temperature 97.7 F 98.4 F Pulse Rate 78 87 Respiratory Rate 17 20 Blood Pressure 130/80 129/86 Pulse Oximetry 96 98 99 Oxygen Delivery Room Air 07/17/22 20:00 07/18/22 03:49 Temperature 98.1 F Pulse Rate 84 Respiratory Rate 18 Blood Pressure 140/86 Pulse Oximetry 100 Oxygen Delivery Room Air Intake/Output Intake/Output: Intake & Output 07/15/22 07/16/22 07/17/22 07/18/22 23:59 23:59 23:59 23:59 Intake Total 4500 4990 4200 500 Output Total 3165 3000 1600 250 Balance 1335 1990 2600 250 Meds/Results Medications: Active Medications Generic Name Dose Route Start Last Admin Trade Name Freq PRN Reason Stop Dose Admin Acetaminophen/Aspirin/Caffeine 1 tablet 07/15/22 16:50 07/15/22 17:17 Acetaminophen/Aspirin/Caffeine 250-250-65 Mg Tablet PO 1 tablet Q6H PRN Administration Pain Rated 1-3 Enoxaparin Sodium 40 mg 07/15/22 09:00 07/17/22 08:45 Enoxaparin 40 Mg/0.4 Ml Syringe SUB-Q 40 mg DAILY GISSELLE Administration Hydromorphone HCl 0.5 mg 07/15/22 02:31 07/15/22 22:17 Hydromorphone Hcl Inj (*Crx) 1 Mg/Ml Syr IV PUSH 0.5 mg Q4H PRN Administration Pain Rated 7-10 Levofloxacin/Dextrose 750 mg in 150 mls @ 100 mls/hr 07/15/22 09:00 07/17/22 08:45 Levaquin 750 Mg/D5w 150 Ml IVPB 100 mls/hr Q24H GISSELLE Administration Metronidazole 500 mg in 100 mls @ 100 mls/hr 07/15/22 07:00 07/18/22 06:03 Flagyl 500 Mg/Iso Soln 100 Ml IVPB 100 mls/hr Q6H GISSELLE Administration Levothyroxine Sodium 125 mcg 07/17/22 06:30 07/18/22 06:03 Levothyroxine Sodium 125 Mcg Tablet PO 125 mcg DAILY@0630 GISSELLE Administration Methylprednisolone Sodium Succinate 60 mg 07/15/22 14:00 07/18/22 06:02 Methylprednisolone Sod Succ 125 Mg Vial IV PUSH 60 mg Q8HR GISSELLE Administration Home Med Naltrexone 1 each 07/15/22 09:00 07/17/22 08:46 2mg Tablet PO 08/14/22 08:59 1 each DAILY GISSELLE Administration Home Med Naltrexone 1 each 07/15/22 09:00 07/17/22 08:46 3mg Tablet PO 08/14/22 08:59 1 each DAILY GISSELLE Administration Ondansetron HCl 4 mg 07/15/22 02:31 07/15/22 02:52 Ondansetron Inj 4 Mg/2 Ml V
[2022-07-18 09:15] VITALS: PULSE 84; RESP 18; O2SAT 100
[2022-07-18] MEDS: levoFLOXacin 750 MG/D5W 150 ML 750 MG/150 ML BAG 100 MG IVPB (09:16)
[2022-07-18 09:37] VITALS: O2SAT 100
[2022-07-18] MEDS: PEG (High)/E-LYTE SOLN 4,000 ML BTL 4000 ML PO (11:55)
--- NOTE | 2022-07-18 12:15 | PM.IMPN ---
Progress Note: A&P Assessment and Plan (1) Right lower quadrant abdominal abscess: Code(s): K65.1 - Peritoneal abscess Status: Acute Assessment and Plan: Right lower quadrant abscess with associated was likely ileitis. Source of ileitis is not specified of possible inflammatory bowel disease. General surgery and gastroenterology has been consulted. GI recommending colonoscopy in small-bowel follow-through once patient is stabilized. Tentative plan to have colonoscopy on 07/19/2022 and small-bowel follow-through after. Surgery not recommending surgical intervention at this time. Advance diet as tolerated starting with clear liquids Analgesics as needed Patient on Levaquin and Flagyl, transitioned to PO (2) Ileitis: Code(s): K52.9 - Noninfective gastroenteritis and colitis, unspecified Status: Acute Assessment and Plan: Imaging suggesting terminal ileitis and Crohn's disease. This will have to be confirmed with colonoscopy, biopsy as well bowel follow-through. GI initiating IV steroids (3) Long COVID: Code(s): U09.9 - Post COVID-19 condition, unspecified Status: Acute Assessment and Plan: Will resume the patient's home naltrexone. (4) Hypothyroidism: Qualifiers: Hypothyroidism type: acquired Qualified Code(s): E03.9 - Hypothyroidism, unspecified Code(s): E03.9 - Hypothyroidism, unspecified Status: Acute Assessment and Plan: Can resume p.o. levothyroxine Subjective Date/time seen: 07/18/22 12:15 Interval history: Patient doing better today and states that his abdominal pain is even better today than yesterday. He is experiencing bloating after eating that is uncomfortable but not painful. Patient stated that GI is performing colonoscopy tomorrow and he is to begin prep today. He did have a bowel movement yesterday that was diarrhea but no blood present. Review of Systems Review of Systems: All systems reviewed & are unremarkable except as noted in HPI and below Exam Narrative: GENERAL: Comfortable, no acute distress HENMT: moist mucous membranes EYES: EOM intact b/l NECK: no lymphadenopathy RESPIRATORY: clear to auscultation CARDIO: RRR GI: soft, right lower quadrant tenderness to palpation, Bowel sounds x4 SKIN: no rashes EXTREMITIES: no edema, redness or tenderness Objective Data Vital Signs Vital Signs: Vital Signs - 24 hr 07/17/22 13:59 07/17/22 19:30 07/17/22 20:00 Temperature 97.7 F 98.4 F Pulse Rate 78 87 Respiratory Rate 17 20 Blood Pressure 130/80 129/86 Pulse Oximetry 98 99 Oxygen Delivery Room Air 07/18/22 03:49 07/18/22 09:37 Temperature 98.1 F Pulse Rate 84 Respiratory Rate 18 Blood Pressure 140/86 Pulse Oximetry 100 100 Oxygen Delivery Room Air Intake/Output Intake/Output: Intake & Output 07/15/22 07/16/22 07/17/22 07/18/22 23:59 23:59 23:59 23:59 Intake Total 4500 4990 4350 1380 Output Total 3165 3000 1600 250 Balance 1335 1990 2750 1130 Meds/Results Medications: Active Medications Generic Name Dose Route Start Last Admin Trade Name Freq PRN Reason Stop Dose Admin Acetaminophen/Aspirin/Caffeine 1 tablet 07/15/22 16:50 07/15/22 17:17 Acetaminophen/Aspirin/Caffeine 250-250-65 Mg Tablet PO 1 tablet Q6H PRN Administration Pain Rated 1-3 Enoxaparin Sodium 40 mg 07/15/22 09:00 07/17/22 08:45 Enoxaparin 40 Mg/0.4 Ml Syringe SUB-Q 40 mg DAILY GISSELLE Administration Hydromorphone HCl 0.5 mg 07/15/22 02:31 07/15/22 22:17 Hydromorphone Hcl Inj (*Crx) 1 Mg/Ml Syr IV PUSH 0.5 mg Q4H PRN Administration Pain Rated 7-10 Levofloxacin 750 mg 07/19/22 09:00 Levofloxacin 750 Mg Tablet PO DAILY [facility] Levothyroxine Sodium 125 mcg 07/17/22 06:30 07/18/22 06:03 Levothyroxine Sodium 125 Mcg Tablet PO 125 mcg DAILY@0630 GISSELLE Administration Methylprednisolone Sodium Succinate 4
[2022-07-18 14:00] VITALS: BP 133/91; PULSE 74; RESP 14; TEMP 36.7; O2SAT 100
[2022-07-18] MEDS: metroNIDAZOLE 250 MG TABLET 500 MG PO ×2 (14:09→20:52)
[2022-07-18] MEDS: methylPREDNISolone SOD SUCC 40 MG VIAL IV PUSH ×2 (14:25→20:51)
[2022-07-18] MEDS: ONDANSETRON INJ 4 MG/2 ML VIAL IV PUSH ×2 (16:49→20:50)
[2022-07-18 20:07] VITALS: BP 144/79; PULSE 71; RESP 18; TEMP 37.1; O2SAT 100
[2022-07-18] MEDS: ROSUVASTATIN 10 MG TABLET PO (20:51)
[2022-07-19] VITALS (8 sets, daily range): BP systolic 125–146; BP diastolic 73–97; PULSE 56–87; RESP 14–18; TEMP 36.4–37; O2SAT 98–100
[2022-07-19] MEDS: ZOLPIDEM TARTRATE (*CRX) 5 MG TABLET 10 MG PO ×2 (01:02→21:14)
[2022-07-19] MEDS: metroNIDAZOLE 250 MG TABLET 500 MG PO ×3 (05:49→21:14)
[2022-07-19] MEDS: methylPREDNISolone SOD SUCC 40 MG VIAL IV PUSH (05:49)
[2022-07-19] MEDS: LEVOTHYROXINE SODIUM 125 MCG TABLET PO (05:49)
[2022-07-19 05:55] LABS: Hematocrit 35.6 % (42.0-52.0); Hemoglobin 11.8 g/dL (14.0-18.0); Immature Granulocyte Absolute 0.05 K/mm3 (0.00-0.031); Immature Granulocyte Percent A 0.6 % (0-0.5); Lymphocytes Absolute Auto 2.17 K/mm3 (0.9-3.2); Lymphocytes Percent Auto 25.4 % (18.3-44.2); Mean Corpuscular HGB Conc 33.1 g/dl (32-36); Mean Corpuscular Hemoglobin 30.6 pg (26-34); Mean Corpuscular Volume 92.2 fl (80-100); Mean Platelet Volume 9.7 fl (7.4-10.4); Monocytes Absolute Auto 0.7 K/mm3 (0.1-0.6); Monocytes Percent Auto 8.2 % (2.6-8.5); Neutrophils Absolute Auto 5.6 K/mm3 (1.3-6.7); Neutrophils Percent Auto 65.8 % (45.5-73.1); Platelet Count Result 231 k/mm3 (150-375); Red Blood Count 3.86 M/mm3 (4.6-6.20); Red Cell Distribution Width 12.2 % (11.5-14.5); White Blood Count 8.6 K/mm3 (4.5-10.0)
[2022-07-19 06:05] LABS: Alanine Aminotransferase 34 U/L (6-50); Albumin Level 3.3 g/dL (3.5-5.1); Alkaline Phosphatase 38 U/L (38-126); Anion Gap 1 mmol/L (8-16); Aspartate Amino Transferase 36 U/L (17-59); Bilirubin,Total 0.3 mg/dL (0.2-1.3); Blood Urea Nitrogen 14 mg/dL (9-20); Calcium 8.1 mg/dL (8.4-10.2); Carbon Dioxide 34 mmol/L (22-30); Chloride 104 mmol/L (98-107); Estimated CRCL calculation 119 ml/min; Estimated Glomerular Filt Rate > 60; Glucose 106 mg/dL (65-110); Potassium 3.8 mmol/L (3.4-5.0); Sodium 139 mmol/L (137-145)
[2022-07-19] MEDS: ONDANSETRON INJ 4 MG/2 ML VIAL IV PUSH (08:18)
[2022-07-19] MEDS: levoFLOXacin 750 MG TABLET PO (08:18)
--- NOTE | 2022-07-19 09:29 | WPDANESEPPF ---
Anes - Initial Pre Proc Eval Procedure: Operation Date: 07/19/22 14:15 Proposed Procedures p Colonoscopy - Hawk Cherry MD Date/Time: 07/19/22 09:29 Surgeon: Jade Blandon DO Pre Op Diagnosis: RLQ Abscess Patient Data Age: 47 Gender: M Height: 1.93 m Weight: 85.4 kg Last Vital Signs Temp 36.4 C 07/19/22 05:05 Pulse 72 07/19/22 05:05 Resp 16 07/19/22 05:05 BP 125/73 07/19/22 05:07 Pulse Ox 100 07/19/22 05:05 O2 Del Method Room Air 07/18/22 20:00 Allergies Allergy/AdvReac Type Severity Reaction Status Date / Time Cephalosporins Allergy Hives Verified 07/14/22 23:54 Home Medications Medication Instructions Recorded Confirmed Type levothyroxine 125 mcg tablet 125 mcg PO DAILY 07/15/22 07/15/22 History naltrexone 50 mg tablet 5 mg PO DAILY 07/15/22 07/15/22 History rosuvastatin 10 mg tablet 10 mg PO HS 07/15/22 07/15/22 History zolpidem 10 mg tablet 10 mg PO HS PRN Sleep 07/15/22 07/15/22 History Laboratory Tests 07/19/22 05:15 WBC 8.6 K/mm3 (4.5-10.0) RBC 3.86 L M/mm3 (4.6-6.20) Hgb 11.8 L g/dL (14.0-18.0) Hct 35.6 L % (42.0-52.0) MCV 92.2 fl (80-100) MCH 30.6 pg (26-34) MCHC 33.1 g/dl (32-36) RDW 12.2 % (11.5-14.5) Plt Count 231 k/mm3 (150-375) MPV 9.7 fl (7.4-10.4) Immature Gran % (Auto) 0.6 H % (0-0.5) Neut % (Auto) 65.8 % (45.5-73.1) Lymph % (Auto) 25.4 % (18.3-44.2) [place] % (Auto) 8.2 % (2.6-8.5) Eos % (Auto) 0.0 % (0-4.4) Baso % (Auto) 0.0 L % (0.2-1.2) Lymph # (Auto) 2.17 K/mm3 (0.9-3.2) [place] # (Auto) 0.7 H K/mm3 (0.1-0.6) Eos # (Auto) 0.0 K/mm3 (0-0.3) Baso # (Auto) 0.0 K/mm3 (0.0-0.1) Abs Immat Gran (auto) 0.05 H K/mm3 (0.00-0.031) Absolute Neuts (auto) 5.6 K/mm3 (1.3-6.7) Absolute Nucleated RBC 0.0 K/mm3 (0.0-0.012) Nucleated RBC % 0.0 % (0.0-0.2) Sodium 139 mmol/L (137-145) Potassium 3.8 mmol/L (3.4-5.0) Chloride 104 mmol/L (98-107) Carbon Dioxide 34 H mmol/L (22-30) Anion Gap 1 L mmol/L (8-16) BUN 14 mg/dL (9-20) Creatinine 0.80 mg/dL (0.7-1.3) Estim Creat Clear Calc 119 ml/min Estimated GFR > 60 (59 - ) Glucose 106 mg/dL (65-110) Calcium 8.1 L mg/dL (8.4-10.2) Total Bilirubin 0.3 mg/dL (0.2-1.3) AST 36 U/L (17-59) ALT 34 U/L (6-50) Alkaline Phosphatase 38 U/L (38-126) Total Protein 6.0 L g/dL (6.3-8.2) Albumin 3.3 L g/dL (3.5-5.1) Patient hx anesthesia problems: none Family hx anesthesia problems: none Results Review: All pre-operative results and documents have been reviewed as part of the pre-operative evaluation. [facility] Past Medical History Medical History Hypothyroidism Insomnia Long COVID Surgical History Surgical History History of appendectomy (~1999) S/P lumbar and lumbosacral fusion by anterior technique (01/2018) L4 through S1 fusion Family History Family History Mother Asthma Father Cerebrovascular accident Sibling Cerebrovascular accident Social History Social History Smoking packs per day: 0.5 Smoking cigarettes per day: 10.0 Years smoked: 7 Smoking pack-years: 3.50 Smoking status: Former smoker Alcohol intake: current Alcohol use details: 1 drink per month Substance use: never Lack of Transportation: No Lack of Food: Never True Current Housing: I Have Housing Concerned About Future Housing: No Difficulty Paying Gas/Electric Bills: No Difficulty Paying for Meds: No Currently Unemployed: No Education: Bachelor's Degree Difficulty w/ Childcare or Family Care: No Additional living arrangements comments: He lives with his
[2022-07-19] MEDS: LACTATED RINGERS 1,000 ML 150 ML IV CONT (09:36)
--- NOTE | 2022-07-19 09:37 | SUR.PREOP ---
0926 PATIENT'S CELL PHONE AND HERNANDEZ NECKLACE LEFT UP IN PATIENT'S ROOM ON BEDSIDE TABLE.
[2022-07-19] MEDS: MESALAMINE 250 MG CAP CR 1000 MG PO ×3 (12:36→21:14)
--- NOTE | 2022-07-19 13:39 | PM.IMPN ---
Progress Note: A&P Assessment and Plan (1) Right lower quadrant abdominal abscess: Code(s): K65.1 - Peritoneal abscess Status: Acute Assessment and Plan: Right lower quadrant abscess with associated was likely ileitis. Source of ileitis is not specified of possible inflammatory bowel disease. General surgery and gastroenterology has been consulted. GI recommending colonoscopy in small-bowel follow-through once patient is stabilized. Colonoscopy revealed internal hemorrhoids and normal mucosa throughout the colon. Biopsies were taken. Small-bowel follow-through ordered Surgery not recommending surgical intervention at this time. Advance diet as tolerated starting with clear liquids Analgesics as needed Patient on Levaquin and Flagyl, transitioned to PO (2) Ileitis: Code(s): K52.9 - Noninfective gastroenteritis and colitis, unspecified Status: Acute Assessment and Plan: Imaging suggesting terminal ileitis and Crohn's disease. This will have to be confirmed with colonoscopy, biopsy as well bowel follow-through. GI initiating IV steroids (3) Long COVID: Code(s): U09.9 - Post COVID-19 condition, unspecified Status: Acute Assessment and Plan: Will resume the patient's home naltrexone. (4) Hypothyroidism: Qualifiers: Hypothyroidism type: acquired Qualified Code(s): E03.9 - Hypothyroidism, unspecified Code(s): E03.9 - Hypothyroidism, unspecified Status: Acute Assessment and Plan: Can resume p.o. levothyroxine Subjective Date/time seen: 07/19/22 13:39 Interval history: patient doing well with no new complaints. Abdominal pain improved. Colonoscopy and small-bowel follow-through scheduled for today. Review of Systems Review of Systems: All systems reviewed & are unremarkable except as noted in HPI and below Exam Narrative: GENERAL: Comfortable, no acute distress HENMT: moist mucous membranes EYES: EOM intact b/l NECK: no lymphadenopathy RESPIRATORY: clear to auscultation CARDIO: RRR GI: soft, No tenderness, Bowel sounds x4 SKIN: no rashes EXTREMITIES: no edema, redness or tenderness Objective Data Vital Signs Vital Signs: Vital Signs - 24 hr 07/18/22 14:00 07/18/22 20:07 07/18/22 20:00 Temperature 98.1 F 98.7 F Pulse Rate 74 71 Respiratory Rate 14 18 Blood Pressure 133/91 H 144/79 H Pulse Oximetry 100 100 Oxygen Delivery Room Air 07/19/22 05:05 07/19/22 05:07 07/19/22 09:33 Temperature 97.6 F 97.6 F Pulse Rate 72 56 L Respiratory Rate 16 16 Blood Pressure 125/73 140/89 Pulse Oximetry 100 100 Oxygen Delivery Room Air 07/19/22 08:30 07/19/22 10:13 07/19/22 10:23 Temperature Pulse Rate 56 L 75 67 Respiratory Rate 16 17 14 Blood Pressure 139/97 H 140/96 H Pulse Oximetry 100 98 98 Oxygen Delivery Room Air Room Air Room Air Intake/Output Intake/Output: Intake & Output 07/16/22 07/17/22 07/18/22 07/19/22 23:59 23:59 23:59 23:59 Intake Total 4990 4350 3100 550 Output Total 3000 1600 250 Balance 1990 2750 2850 550 Meds/Results Medications: Active Medications Generic Name Dose Route Start Last Admin Trade Name Freq PRN Reason Stop Dose Admin Acetaminophen/Aspirin/Caffeine 1 tablet 07/15/22 16:50 07/15/22 17:17 Acetaminophen/Aspirin/Caffeine 250-250-65 Mg Tablet PO 1 tablet Q6H PRN Administration Pain Rated 1-3 Enoxaparin Sodium 40 mg 07/15/22 09:00 07/17/22 08:45 Enoxaparin 40 Mg/0.4 Ml Syringe SUB-Q 40 mg DAILY GISSELLE Administration Hydromorphone HCl 0.5 mg 07/15/22 02:31 07/15/22 22:17 Hydromorphone Hcl Inj (*Crx) 1 Mg/Ml Syr IV PUSH 0.5 mg Q4H PRN Administration Pain Rated 7-10 Levofloxacin 750 mg 07/19/22 09:00 07/19/22 08:18 Levofloxacin 750 Mg Tablet PO 750 mg DAILY GISSELLE Administration Levothyroxine Sodium 125 mcg 07/17/22 06:30 07/19/22 05:49 Levothyroxine So
[2022-07-19] MEDS: polyethylene glycoL 3350 17 GM POWD.PACK PO (15:08)
[2022-07-19] MEDS: ROSUVASTATIN 10 MG TABLET PO (21:14)
[2022-07-20 04:11] VITALS: BP 121/78; PULSE 68; RESP 16; TEMP 36.9; O2SAT 99
[2022-07-20] MEDS: LEVOTHYROXINE SODIUM 125 MCG TABLET PO (05:34)
[2022-07-20] MEDS: metroNIDAZOLE 250 MG TABLET 500 MG PO ×2 (05:34→12:55)
[2022-07-20 05:47] LABS: Basophils Percent Auto 0.1 % (0.2-1.2); Eosinophils Percent Auto 0.4 % (0-4.4); Hematocrit 35.7 % (42.0-52.0); Hemoglobin 12.1 g/dL (14.0-18.0); Immature Granulocyte Absolute 0.09 K/mm3 (0.00-0.031); Immature Granulocyte Percent A 1.1 % (0-0.5); Lymphocytes Absolute Auto 2.73 K/mm3 (0.9-3.2); Lymphocytes Percent Auto 34.3 % (18.3-44.2); Mean Corpuscular HGB Conc 33.9 g/dl (32-36); Mean Corpuscular Hemoglobin 30.9 pg (26-34); Mean Corpuscular Volume 91.3 fl (80-100); Mean Platelet Volume 9.5 fl (7.4-10.4); Monocytes Absolute Auto 0.7 K/mm3 (0.1-0.6); Monocytes Percent Auto 9.1 % (2.6-8.5); Neutrophils Absolute Auto 4.4 K/mm3 (1.3-6.7); Platelet Count Result 217 k/mm3 (150-375); Red Blood Count 3.91 M/mm3 (4.6-6.20)
[2022-07-20 06:04] LABS: Alanine Aminotransferase 41 U/L (6-50); Albumin Level 3.1 g/dL (3.5-5.1); Alkaline Phosphatase 35 U/L (38-126); Anion Gap 4 mmol/L (8-16); Aspartate Amino Transferase 36 U/L (17-59); Bilirubin,Total 0.4 mg/dL (0.2-1.3); Blood Urea Nitrogen 13 mg/dL (9-20); Calcium 7.5 mg/dL (8.4-10.2); Carbon Dioxide 30 mmol/L (22-30); Chloride 103 mmol/L (98-107); Estimated CRCL calculation 134 ml/min; Estimated Glomerular Filt Rate > 60; Glucose 94 mg/dL (65-110); Potassium 3.4 mmol/L (3.4-5.0); Sodium 137 mmol/L (137-145)
--- NOTE | 2022-07-20 07:19 | WPDGIPROGNO ---
Progress Note: A&P Assessment and Plan (1) Ileitis: Code(s): K52.9 - Noninfective gastroenteritis and colitis, unspecified Status: Acute Assessment and Plan: Patient with terminal ileitis on CT scan imaging with associated right lower quadrant abscess. Small-bowel follow-through reveals no obstruction but small stricture ring encountered. Plan to keep patient on a low residue diet. Complete course of oral antibiotics for a total of 10 day course. Pentasa started will be continued. Prednisone 40 mg p.o. daily with a tapering dose advised. We will arrange outpatient CT scan imaging. Follow-up in the GI office in 2 weeks. Okay with GI service for patient be discharged today if others agree. (2) Right lower quadrant abdominal abscess: Code(s): K65.1 - Peritoneal abscess Status: Acute Assessment and Plan: Right lower quadrant abscess appears to have improved with medical management. Follow-up CT scanning over the next 2 weeks and follow in the office is advised. Subjective Date/time seen: 07/20/22 07:19 Interval history: Patient alert comfortable this morning. Denies abdominal pain. Tolerating diet. Had good bowel movement. Review of Systems Review of Systems: Review of systems noncontributory. Exam Narrative: Physical exam reveals patient be alert. Vital signs stable. He is afebrile and anicteric. Lungs are clear. Heart without murmur. Abdomen bowel sounds present soft nontender no organomegaly. Objective Data Vital Signs Vital Signs: Vital Signs - 24 hr 07/19/22 09:33 07/19/22 08:30 07/19/22 10:13 Temperature 97.6 F Pulse Rate 56 L 56 L 75 Respiratory Rate 16 16 17 Blood Pressure 140/89 139/97 H Pulse Oximetry 100 100 98 Oxygen Delivery Room Air Room Air Room Air 07/19/22 10:23 07/19/22 14:00 07/19/22 20:00 Temperature 98.1 F 98.6 F Pulse Rate 67 68 87 Respiratory Rate 14 16 18 Blood Pressure 140/96 H 146/81 H 132/79 Pulse Oximetry 98 100 100 Oxygen Delivery Room Air 07/19/22 20:00 07/20/22 04:11 Temperature 98.4 F Pulse Rate 68 Respiratory Rate 16 Blood Pressure 121/78 Pulse Oximetry 99 Oxygen Delivery Room Air Intake/Output Intake/Output: Intake & Output 07/17/22 07/18/22 07/19/22 07/20/22 23:59 23:59 23:59 23:59 Intake Total 4350 3100 1150 500 Output Total 1600 250 Balance 2750 2850 1150 500 Meds/Results Medications: Active Medications Generic Name Dose Route Start Last Admin Trade Name Freq PRN Reason Stop Dose Admin Acetaminophen/Aspirin/Caffeine 1 tablet 07/15/22 16:50 07/15/22 17:17 Acetaminophen/Aspirin/Caffeine 250-250-65 Mg Tablet PO 1 tablet Q6H PRN Administration Pain Rated 1-3 Enoxaparin Sodium 40 mg 07/15/22 09:00 07/17/22 08:45 Enoxaparin 40 Mg/0.4 Ml Syringe SUB-Q 40 mg DAILY GISSELLE Administration Hydromorphone HCl 0.5 mg 07/15/22 02:31 07/15/22 22:17 Hydromorphone Hcl Inj (*Crx) 1 Mg/Ml Syr IV PUSH 0.5 mg Q4H PRN Administration Pain Rated 7-10 Levofloxacin 750 mg 07/19/22 09:00 07/19/22 08:18 Levofloxacin 750 Mg Tablet PO 750 mg DAILY GISSELLE Administration Levothyroxine Sodium 125 mcg 07/17/22 06:30 07/20/22 05:34 Levothyroxine Sodium 125 Mcg Tablet PO 125 mcg DAILY@0630 GISSELLE Administration Mesalamine 1,000 mg 07/19/22 13:00 07/19/22 21:14 Mesalamine 250 Mg Cap Cr PO 1,000 mg QID GISSELLE Administration Metronidazole 500 mg 07/18/22 14:00 07/20/22 05:34 Metronidazole 250 Mg Tablet PO 500 mg Q8HR GISSELLE Administration Home Med Naltrexone 1 each 07/15/22 09:00 07/19/22 08:25 2mg Tablet PO 08/14/22 08:59 1 each DAILY GISSELLE Administration Home Med Naltrexone 1 each 07/15/22 09:00 07/19/22 08:25 3mg Tablet PO 08/14/22 08:59 1 each DAILY GISSELLE Administration Ondansetron HCl 4 mg 07/15/22 02:31 07/19/22 08:18 Ondansetron Inj 4 Mg/2 Ml Vial IV PUSH 4 mg Q4H PRN Administratio
[2022-07-20] MEDS: MESALAMINE 250 MG CAP CR 1000 MG PO ×2 (08:08→12:55)
[2022-07-20] MEDS: levoFLOXacin 750 MG TABLET PO (08:09)
[2022-07-20] MEDS: predniSONE 20 MG TABLET 40 MG PO (08:09)
[2022-07-20 08:10] VITALS: PULSE 68; RESP 16; O2SAT 99
--- NOTE | 2022-07-20 12:58 | PM.DS ---
DS: Admitting Diagnosis Discharge Date 07/20/2022 Admitting Diagnosis Right lower quadrant abdominal abscess Ileitis DS: Discharge Diagnosis Discharge Diagnosis (1) Right lower quadrant abdominal abscess: Code(s): K65.1 - Peritoneal abscess Status: Acute Assessment and Plan: Right lower quadrant abscess with associated was likely ileitis. Source of ileitis possibly secondary to inflammatory bowel disease. General surgery and gastroenterology consulted. No surgical needs identified. 07/19/22 Colonoscopy completed and revealed internal hemorrhoids and normal mucosa throughout the colon. Biopsies taken and pending. 07/19/22 Small-bowel follow-through showed very short segment of relatively narrowed terminal ileum with suggestion of small erosions but without a fixed stricture located 5 cm proximal to the ileocecal valve, which corresponds in location to the edematous segment of small bowel on the prior CT which remains concerning for Crohn's disease with differential including either infectious terminal ileitis, and couple small diverticula along the more proximal distal ileum. Patient treated with Levaquin and Metronidazole IV/PO 07/15-07/20/22. Patient discharged on oral Levaquin 750 mg daily and Metronidazole 500 mg Q8 hours x4 more days, for total 10-day course. Advance diet as tolerated to low residue diet. Analgesics as needed Follow up CT abd/pelvis in 2 weeks with GI follow up (2) Ileitis: Code(s): K52.9 - Noninfective gastroenteritis and colitis, unspecified Status: Acute Assessment and Plan: Imaging suggesting terminal ileitis and Crohn's disease. GI consulted colonoscopy and SBFT as above Started on Pentasa 1000 mg QID and Prednisone 40 mg PO daily with slow taper (decrease 5 mg every 7 days over 7 weeks. Abd pain improved and tolerating diet. Follow up with GI as above. DS: Summary Hospital Course Reason for hospitalization: Abdominal pain Hospital Course: Patient is a 39-year-old male with irritable bowel disease, hypothyroidism and long COVID who presented to the ER for evaluation of abdominal pain.? The patient is from [place] visiting his mother.? He reported on the evening of the he developed abdominal tightness.? Within a couple of hours, the tightness turned into a cramping right lower quadrant abdominal pain that was more severe to palpation.? It was associated with decreased appetite.? The pain was 7/10 in intensity.? He denied nausea or vomiting.? He denied bowel movement since the onset of pain.? He reported his bowel movements tend to be loose, but he occasionally has episodes of constipation, as well.? This has been ongoing since before 2008, at which time he had a colonoscopy which he reported was normal.? He reported temperature as high as 101? on the .? He reported unintentional weight loss of 20-25 lb since May or June.? He denied changes in appetite until the last few days prior to admission? He denied mucous or blood in stools.? No nausea or vomiting.? He tried to eat 2 tbsp of mustard which briefly helped his symptoms before his pain rebounded. He also reported symptoms of long COVID including neuropathic pain down his arms, overwhelming fatigue, and disequilibrium; these symptoms have improved since he was started on naltrexone by his neurologist and underwent sequential compression therapy last month.? The patient was admitted to the medical floor. CT abdomen and pelvis was obtained that suggested terminal ileitis with 2.7 cm adjacent abscess. GI and General Surgery were consulted. The patient was treated with bowel rest, IV fluids and IV Levaquin and IV Metronidazole. No surgical intervention was recommended. He underwent colonoscopy on 07/19 that showed internal hemorrhoids and normal colon mucosa. Biopsies were taken and pending. Small bowel follow through was obtained and concerning for narrowed terminal ileum with suggestion of small erosions but
[2022-07-20 14:00] VITALS: BP 138/83; PULSE 66; RESP 16; TEMP 36.8; O2SAT 100
== END 2022-07-20 15:52 | disposition home or self-care (01) | DRG 385 ==
LOC: ANHED 07-15 02:34 → ANH3MED 07-15 02:55
PROVIDERS: Emergency Medicine; Internal Medicine Critical Care Medicine; Internal Medicine Gastroenterology; Admitting Provider Internal Medicine; Emergency Provider Physician Assistant; Visit Provider Nurse Practitioner Family
PROC: 0DJD8ZZ Inspection of Lower Intestinal Tract, Via Natural or Artificial Opening Endoscopic (ICD-10-PCS; CPT 45378; principal; 2022-07-19 14:15)
DX: K50.014 Crohn's disease of small intestine with abscess (principal); K65.1 Peritoneal abscess; E03.9 Hypothyroidism, unspecified; E87.8 Other disorders of electrolyte and fluid balance, not elsewhere classified; G93.39 Other post infection and related fatigue syndromes; G62.9 Polyneuropathy, unspecified; K64.8 Other hemorrhoids; U09.9 Post COVID-19 condition, unspecified; Z87.891 Personal history of nicotine dependence; Z90.49 Acquired absence of other specified parts of digestive tract; Z98.1 Arthrodesis status
CPT/HCPCS: 36415; 74177; 74250; 80048; 80053; 81001; 83690; 85025; 86140; 87040; 88305; 96361; 96365; 96366; 96367; 96372; 96375; 96376; 99285; A9270; G0378; J1170; J1650; J1956; J2405; J2543; J2704; J2920; J2930; J7030; J7120; J7512; Q9967

== ENCOUNTER 2022-08-02 14:36 | Outpatient (CLI) | payer OTHER, SELFPAY ==
--- NOTE | ~2022-08-02 | CT_ITS ---
EXAMINATION: CT abdomen pelvis w con DATE: 08/02/2022 15:05 INDICATION: Peritoneal abscess TECHNIQUE: Computed tomography (CT) of the abdomen and pelvis was performed with 100 cc Omnipaque 350 intravenous contrast. The dose-length product was 422.22 mGy-cm. Automated exposure control and iterative reconstruction technique were employed. COMPARISON: CT dated 07/15/2022. FINDINGS: Lung bases are unremarkable. No significant pleural or pericardial effusion. No significant vascular abnormality. The liver, spleen, pancreas, adrenal glands and left kidney are unremarkable. There is a cluster of stones in the right kidney. Gallbladder is present. Nonobstructive bowel patter n. There are surgical changes in the left anterior abdominal wall. Enlarged prostate gland. There is interval resolution of terminal ileitis. No evidence for residual abscess identified. No free air or free fluid. No lymphadenopathy. There is mild osteoarthritis of the hips. There are surgical fusion c hanges at L4-no free air or free fluid. S1. IMPRESSION: 1. Interval resolution of terminal ileitis and adjacent abscess. 2: Nonobstructing right nephrolithiasis. Reviewed, dictated and finalized at location []
== END 2022-08-02 14:37 | disposition home or self-care (01) ==
PROVIDERS: Visit Provider Internal Medicine Gastroenterology
DX: K65.1 Peritoneal abscess (principal); N20.0 Calculus of kidney
CPT/HCPCS: 74177; Q9967

== ENCOUNTER 2022-08-05 15:45 | Outpatient (CLI) | payer OTHER, SELFPAY ==
[2022-08-11 22:04] LABS: ANCA Screen Negative (Negative); Myeloperoxidase Ab <1.0 AI (<1.0); Proteinase-3 Ab <1.0 AI (<1.0); S cerevisiae Ab (IgA) 73.5 U (<=20.0); S cerevisiae Ab (IgG) 37.9 U (<=20.0)
== END 2022-08-05 15:46 | disposition home or self-care (01) ==
LOC: ANHLAB 15:46
PROVIDERS: Visit Provider Internal Medicine Gastroenterology
DX: K65.1 Peritoneal abscess (principal); K52.9 Noninfective gastroenteritis and colitis, unspecified
CPT/HCPCS: 36415; 86036; 86671